=== PATIENT | female | born 1980 | race Hispanic/Latino ===

== ENCOUNTER 2023-12-09 17:22 | Emergency (ER) | payer BC, SELFPAY ==
[2023-12-09 17:22] VITALS: BP 136/94; PULSE 87; RESP 18; TEMP 36.1; O2SAT 99; BMI 37.7
[2023-12-09 17:55] LABS: Absolute Lymphocyte Count 2.83 X10^3/uL (0.83-4.51); Absolute Neutrophil Count 6.3 X10^3/uL (2.0-7.7); Eosinophil# 0.28 X10^3/uL; Eosinophils% 2.8 % (0-5); Hematocrit 45.5 % (37-47); Hemoglobin 15.1 g/dL (12.0-15.0); Lymphocyte # 2.83 X10^3/ul (0.83-4.51); Lymphocyte % 27.9 % (19-41); Mean Corp Hgb Conc 33.2 g/dL (32-36); Mean Corpuscular Hgb 29.7 pg (27.0-32.0); Mean Corpuscular Volume 89.4 fL (81-99); Mean Platelet Vol. 9.6 fl (6.2-12.0); Monocyte# 0.59 X10^3/uL; Monocyte% 5.8 % (0-10); NRBC Flagged by Analyzer 0 % (0-5); Platelet Count 450 K/mm3 (150-450); RBC Distribution Width CV 13.2 % (11.6-14.6); RBC Distribution Width SD 43.1 fl (35.1-43.9); Red Blood Count 5.09 M/mm3 (4.2-5.4); White Blood Count 10.2 K/mm3 (4.4-11.0)
[2023-12-09 18:20] LABS: ALB/GLOB Ratio 0.9 RATIO (0.9-2.4); AST(SGOT) 18 U/L (15-37); Alanine Aminotransfer ALT/SGPT 32 U/L (13-56); Albumin, Serum 3.9 g/dL (3.2-5.0); Alkaline Phosphatase 96 U/L (45-117); Anion Gap 7 (5-15); BUN 16 mg/dL (7-18); BUN/Creat Ratio 17.4 RATIO (10-20); Calcium,Total 9.6 mg/dL (8.5-10.1); Chloride 105 mmol/L (98-107); Creatinine, Serum 0.92 mg/dL (0.55-1.02); EST Glomerular Filtration Rate 70 mL/min (>60); Est Glom Filt Rate - Afr Amer 85 mL/min (>60); Estimated Creatinine Clearance 75.47 ml/min; Globulin 4.4 g/dL (2.2-4.2); Glucose 98 mg/dL (74-106); Potassium 3.8 mmol/L (3.5-5.1); Protein, Total 8.3 g/dL (6.4-8.2); Sodium Level 137 mmol/L (136-145)
[2023-12-09 18:21] LABS: Internal QC Validated? YES +Cl - CLEAR BKGD; Pregnancy, Serum, hCG Quali. NEGATIVE Negative; Record Kit Lot#, Serum Preg. 772476
[2023-12-09 19:02] LABS: Bacteria 0 SEEN /hpf (None Seen); Mucous, Urine 0 SEEN /hpf (<or=2+); Red Blood Cells-Urine 0 SEEN /hpf (0-5); Squamous Epithelial Cells - UA 0 SEEN /hpf (5-10); White Blood Cells 0 SEEN /hpf (0-5)
[2023-12-09 19:10] LABS: Color, Urine Yellow (Yellow); Glucose, Dipstick Normal (Normal); Ketone-Dipstick Negative (Negative); Leukocyte Esterase-Dipstick Negative /ul (Negative); Nitrite-Dipstick Negative (Negative); Occult Blood-Urine 10 /ul (Negative); Protein-Dipstick Negative (Negative); Specific Gravity, Urine 1.015 (1.002-1.030); Urine Bilirubin Dipstick Negative (Negative); Urine Clarity Clear (Clear); Urine Urobilinogen Normal (Normal)
--- NOTE | 2023-12-09 19:15 | EDS_ITS ---
HPI HPI - GI History of Present Illness Chief Complaint: Abd Pain Informant: patient Abdominal Pain/Flank Pain Onset: Month(s) Context: Gradual Onset Timing: Intermittent Quality: Burning Location: Epigastric Current Severity: Mild Maximum Severity: Mild Worsened by: Nothing Relieved by: Food Nausea/Vomiting/Emesis GI Symptom: Negative for Nausea or Vomiting Diarrhea/Melena/Hematochezia GI Symptom: Negative for Diarrhea, Melena or Hematochezia Associated Symptoms Associated Symptoms: Negative for Dysuria, Frequency or Hematuria Narrative Narrative: 43-year-old female history of high both thyroidism and hypertension. Prior hysterectomy and appendectomy. Says for about a month she has had epigastric abdominal pain. Worse with eating. She does not drink alcohol. Denies any significant weight loss. Describes it as a burning. No fever. No vomiting. No diarrhea or melena. Denies any trauma. She bought [id number] antiacid medication which has been helping her but today the pain seems to be worse. Does not radiate anywhere. Prior similar symptoms: Yes Recent Illness/Hospitalization: No PFSH PFSH Medical History Hypothyroidism Hypertension Home Medications ?Medication ?Instructions ?Recorded ?Last Taken ?Type pantoprazole 40 mg tablet,delayed 40 mg PO DAILY #30 tabs 12/09/23 Unknown Rx release (Protonix) Allergy/AdvReac Type Severity Reaction Status Date / Time No Known Allergies Allergy Verified 12/09/23 17:25 Surgical History History of unilateral salpingectomy H/O: hysterectomy Social History Smoking Status: Current some day smoker tobacco type: cigarettes ROS ROS ED ROS Narrative Epigastric abdominal pain. Review of Systems ROS Unobtainable: Denies due to encephalopathy Constitutional Constitutional ED: Denies chills or fever(s) ENT ENT ED: Denies ear pain Cardiovascular Cardiovascular: Denies chest pain or palpitations Respiratory/Chest Respiratory/Chest: Denies cough or dyspnea Gastrointestinal Gastrointestinal: Reports abdominal pain; Denies constipation, diarrhea, melena, nausea or vomiting Genitourinary Genitourinary ED: Denies dysuria or hematuria Musculoskeletal Musculoskeletal: Denies arthralgias or back pain Integumentary Denies abscess or Abrasions Neurologic Neurologic: Denies headache(s) Psychiatric Psychiatric: Denies anxiety Endocrine Endocrinology: Denies polydipsia Hematologic/Lymphatic Hematologic/Lymphatic: Denies easy bleeding or easy bruising Allergic/Immunologic Allergic/Immunologic ED: Denies mouth swelling, tongue swelling or urticaria EXAM Physical Exam Narrative Exam Narrative: Well-appearing 43-year-old female. Vital signs stable afebrile. H EENT exam unremarkable. Mytrex members. Neck nontender no lymphadenopathy. Lungs clear to auscultation bilaterally. Heart regular rhythm rate about 85 no murmur. Abdomen soft nondistended normal bowel sounds no peritoneal signs. Both right upper and right lower quadrant unremarkable. No distention. No hernia or mass. No pulsatile mass. Very mild epigastric discomfort with deep palpation. Moving all 4 extremities. Nontender no edema. Back nontender. She is awake and alert. Moving all 4 extremities. Answering questions following commands. Const Vital Signs: 12/09/23 17:22 12/09/23 19:22 Temperature 97 F L Temperature Source Temporal Pulse Rate 87 69 Respiratory Rate 18 18 Blood Pressure 136/94 H 111/84 H Blood Pressure Mean 108 93 Pulse Ox 99 99 Oxygen Delivery Method Room Air Room Air Positive well nourished and well developed; Negative for cachectic, contractures or unkempt General Appearance ED: well developed and NAD; Negative for unkempt, cachectic, contractures or pallor Nutritional Appearance: Negative for cachectic HEENT Reports moist mucous membranes; Denies dry mucous membranes normocephalic and atraumatic; Negative for trauma or tenderness Mouth ED: No dry mucous membranes Mouth: No dry mucous membranes Eyes PERRL and EOMs intact bilaterally General Eye ED: Negative for pale conjunctiva, scleral icterus or other Neck no lymphadenopathy, supple and no JVD General: Negative for tenderness Carotids: Negative for other Lymph Lymphatic: Negative for other Resp normal respiratory effort and clear to auscultation bilaterally Effort and Inspection: Negative for respiratory distress Auscultation: Negative for rales, rhonchi, wheezes or diminished lung sounds Cardio regular rate, regular rhythm, S1 normal heart sound, S2 normal heart sound and no murmurs Rate: Negative for bradycardia or tachycardic Rhythm: Negative for abnormal rhythm GI non-distended and no masses; Negative for non-tender GI Narrative: Very mild epigastric abdominal pain with deep palpation. No mass. No right upper nor right lower quadrant tenderness. No hernia. No distention. Inspection: Negative for abdominal distention Auscultation: normoactive bowel sounds Palpation: soft and tender; Negative for guarding, hepatomegaly, splenomegaly, hernia, mass, pulsatile mass or rebound tenderness present Back/Spine no CVA tenderness General Back: Negative for CVA tenderness Cervical Spine: Negative for cervical spine tenderness Thoracic Spine / Upper Back: Negative for thoracic spinal tenderness Lumbar Spine / Lower Back: Negative for lumbar spinal tenderness Coccyx: Negative for other Extremity full ROM General Extremety ED: Negative for edema General Extremity: Negative for edema Neuro CN's II-XII intact bilaterally and moves all extremities Sensorium / Orientation: alert, oriented to person, oriented to place and oriented to time Motor Exam: strength 5/5 throughout; Negative for general weakness or strength abnormal Psych mental status grossly normal and thought process normal Appearance: Negative for unkempt Attitude: No agitated Mood & Affect: Negative for depressed, anxious or tearful Skin no wounds General Skin Exam: Negative for jaundice or pallor Lesions: no lesions Rashes: no rashes Trauma: Negative for abrasion Nails: Negative for discolored MDM MDM MDM Narrative Medical decision making narrative: 43-year-old female epigastric Adam pain. Was taking over the counter and acid medication with some relief. Now having worse pain. No melena. No nausea or vomiting. No hematemesis. Prior appendectomy and hysterectomy. Gastritis versus pancreatitis versus gallbladder disease versus other etiologies. At this time I will think she needs any imaging. Labs to be obtained. She was given GI cocktail and Protonix. Repeat exam at 8:12 PM patient doing well. Better after GI cocktail and Protonix. Repeat abdominal exam is nontender. She and I discussed all of her test results. She will be referred to a local primary care physician for follow-up. She does not need any imaging tonight. She will be written a prescription for Protonix. clinically I think this is most likely gastritis and/or reflux. History & Record Review Discussion w/independent historian: Patient Additional record(s) reviewed:: No prior records Lab Data Attestation: I reviewed the patient's lab results. Lab results narrative: CBC white count 10 H&H of 15 and 45. Platelets 450. Electrolytes show gap 7. Normal BUN and creatinine. Liver enzymes normal. Serum test negative. Glucose 98. Lipase normal at 40. UA normal. Labs: Laboratory Results - last 24 hr 12/09/23 12/09/23 12/09/23 17:38 18:36 19:13 WBC 10.2 RBC 5.09 Hgb 15.1 H Hct 45.5 MCV 89.4 MCH 29.7 MCHC 33.2 RDW Std Deviation 43.1 RDW Coeff of Mina 13.2 Plt Count 450 MPV 9.6 Immature Gran % (Auto) 0.500 Neut % (Auto) 62.0 Lymph % (Auto) 27.9 Gr[place]gs % (Auto) 5.8 Eos % (Auto) 2.8 Baso % (Auto) 1.0 Absolute Neuts (auto) 6.3 Absolute Lymphs (auto) 2.83 Nucleated RBC % 0 Sodium 137 Potassium 3.8 Chloride 105 Carbon Dioxide 25.0 Anion Gap 7 BUN 16 Creatinine 0.92 Estim Creat Clear Calc 75.47 Est GFR (MDRD) Af Amer 85 Est GFR (MDRD) Non-Af 70 BUN/Creatinine Ratio 17.4 Glucose 98 Calcium 9.6 Total Bilirubin 0.40 AST 18 ALT 32 Alkaline Phosphatase 96 Total Protein 8.3 H Albumin 3.9 Globulin 4.4 H Albumin/Globulin Ratio 0.9 Lipase 40 Serum , Qual NEGATIVE Urine Color Yellow Urine Clarity Clear Urine pH 6.0 Ur Specific [place] 1.015 Urine Protein Negative Urine Glucose (UA) Normal Urine Ketones Negative Urine Occult Blood 10 H Urine Nitrite Negative Urine Bilirubin Negative Urine Urobilinogen Normal Ur Leukocyte Esterase Negative Urine RBC 0 SEEN Urine WBC 0 SEEN Ur Squamous Epith Cells 0 SEEN Urine Bacteria 0 SEEN Urine Mucus 0 SEEN Discharge Plan Triage Chief Complaint: Abd Pain ED Provider: Fabien Rodrigues Dx/Rx/DC Orders Clinical Impression: Gastritis, Acid reflux disease Instructions: ED GERD (Adult), ED Gastritis (Adult) Prescriptions: New pantoprazole [Protonix] 40 mg tablet,delayed release (DR/EC) 40 mg PO DAILY Qty: 30 1RF Primary Care Provider: Care Physician,No Primary Referrals: Ras Quinones MD [Med Staff - Mail Handler Assistant] - 1-2 Weeks Care Physician,No Primary [Primary Care Provider] - Activity Restrictions/Additional Instructions: Your labs today look good. This is most likely secondary to gastroesophageal reflux and/or gastritis. Take the medication Protonix once daily. You can also use Tums [id number]. Stevens diet and increase slowly. Avoid real spicy or greasy foods. Follow-up with a local primary care physician. Print Language: Yoruba Disposition Disposition: Home, Self Care
[2023-12-09] MEDS: Pantoprazole Sodium 40 MG Tablet PO (19:19)
[2023-12-09] MEDS: Lidocaine 2% Viscous15 ML UDC 15 ML PO (19:19)
[2023-12-09] MEDS: Mag Hydrox/Al Hydrox/Simeth 30 ML UDC PO (19:19)
[2023-12-09 19:22] VITALS: BP 111/84; PULSE 69; RESP 18; O2SAT 99
[2023-12-09 20:00] VITALS: BP 116/85; PULSE 67; RESP 18; TEMP 36.6; O2SAT 99
[2023-12-09 20:01] LABS: Lipase 40 U/L (13-75)
== END 2023-12-09 20:23 | disposition home or self-care (01) ==
PROVIDERS: Emergency Provider Emergency Medicine; Visit Provider Emergency Medicine
DX: K29.70 Gastritis, unspecified, without bleeding (principal); K21.9 Gastro-esophageal reflux disease without esophagitis; I10 Essential (primary) hypertension; F17.210 Nicotine dependence, cigarettes, uncomplicated; Z90.710 Acquired absence of both cervix and uterus; E03.9 Hypothyroidism, unspecified
CPT/HCPCS: 80053; 81001; 83690; 84703; 85025; 99284; A4216

== ENCOUNTER → 2024-04-09 | Outpatient (CLI) | payer BC, SELFPAY ==
[2024-04-09 17:12] LABS: Anion Gap 5 (5-15); BUN 19 mg/dL (7-18); BUN/Creat Ratio 19.9 RATIO (10-20); Calcium,Total 9.6 mg/dL (8.5-10.1); Chloride 105 mmol/L (98-107); Creatinine, Serum 0.95 mg/dL (0.55-1.02); EST Glomerular Filtration Rate 67 mL/min (>60); Est Glom Filt Rate - Afr Amer 82 mL/min (>60); Glucose 89 mg/dL (74-106); Potassium 4.1 mmol/L (3.5-5.1); Sodium Level 140 mmol/L (136-145)
== END | disposition home or self-care (01) ==
LOC: BIMLAB 14:18
PROVIDERS: PCP Internal Medicine; Referring Provider Internal Medicine; Visit Provider Internal Medicine
DX: I10 Essential (primary) hypertension (principal); E03.9 Hypothyroidism, unspecified
CPT/HCPCS: 36415; 80048; 84443

== ENCOUNTER → 2024-09-08 | Outpatient (CLI) | payer BC, SELFPAY ==
[2024-09-08 16:51] LABS: Cholesterol 221 mg/dL (<=200); High Density Lipoprotein 50 mg/dL; Low Density Lipoprotein Calc. 121 mg/dL; Triglycerides 249 mg/dL; Very Low Density Lipoprotein 50 mg/dL (5-40); cholesterol:hdl ratio screen 4.42
[2024-09-08 17:59] LABS: ALB/GLOB Ratio 1.2 RATIO (0.9-2.4); AST(SGOT) 24 U/L (<=31); Alanine Aminotransfer ALT/SGPT 25 U/L (<=34); Albumin, Serum 4.4 g/dL (3.5-5.0); Alkaline Phosphatase 103 U/L (35-104); Anion Gap 14 (5-15); BUN 18 mg/dL (4-19); BUN/Creat Ratio 20.3 RATIO (10-20); Calcium,Total 9.9 mg/dL (7.6-11.0); Carbon Dioxide 23.8 mmol/L (21.0-32.0); Chloride 104 mmol/L (98-108); Creatinine, Serum 0.87 mg/dL (0.70-1.20); EST Glomerular Filtration Rate 84 (>60); Globulin 3.6 g/dL (2.2-4.2); Glucose 113 mg/dL (70-99); Potassium 4.2 mmol/L (3.3-5.1); Sodium Level 141 mmol/L (133-145)
== END | disposition home or self-care (01) ==
LOC: BIMLAB 13:39
PROVIDERS: PCP Internal Medicine; Referring Provider Internal Medicine; Visit Provider Internal Medicine
DX: Z00.00 Encounter for general adult medical examination without abnormal findings (principal)
CPT/HCPCS: 36415; 80053; 80061

== ENCOUNTER → 2024-09-15 | Outpatient (CLI) | payer BC, SELFPAY ==
--- NOTE | 2024-09-15 13:30 | BI_ITS ---
EXAM: SCRN MAMM (CAD)W/JORDAN BILAT 09/15/2024 CLINICAL HISTORY: F, Age 44 y/o , BREAST CANCER SCREENING TECHNIQUE: Bilateral screening digital breast tomosynthesis with 2D and 3D images. Computer aided detection. COMPARISON: Baseline examination, no priors. FINDINGS: TISSUE DENSITY: The breast tissue is heterogenously dense, which may obscure small masses. The mammogram demonstrates that the patient has dense breasts. Supplemental screening with whole breast ultrasound or MRI may be considered for further evaluation. Bilateral Breast Mammographic Findings: There are multiple bilateral circumscribed masses, which is typically a benign pattern. No significant masses, calcifications or other abnormalities are identified. BI/SCRN MAMM (CAD)W/JORDAN BILAT IMPRESSION: Right Breast: BIRADS 2 BENIGN FINDING. Left Breast: BIRADS 2 BENIGN FINDING. OVERALL FINAL ASSESSMENT: BIRADS 2 BENIGN FINDING. RECOMMENDATION: Routine annual follow-up in 1 Year A letter with findings and recommendations will be mailed to the patient. Reading Location: [id number]
== END | disposition home or self-care (01) ==
PROVIDERS: PCP Internal Medicine; Referring Provider Internal Medicine; Visit Provider Internal Medicine
DX: Z12.31 Encounter for screening mammogram for malignant neoplasm of breast (principal)
CPT/HCPCS: 77063; 77067

== ENCOUNTER 2024-11-17 08:46 | Day surgery (SDC) | payer BC, SELFPAY ==
--- NOTE | 2024-11-12 13:42 | PAT.ANESEVAL ---
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 When Was Last Pacemaker Check QUESTION #4 FULL TEXT: You/Your Family Experience fever (hyperthermia) with Anesthesia Last Oral Intake Last Oral intake: Last Oral Intake NPO since Meds taken in AM with sips of water? 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 - java programmer analyst: PONV - java programmer analyst Female Yes 11/12/24 13:09 HX of Motion Sickness No 11/12/24 13:09 HX of N/V After Surgery No 11/12/24 13:09 Non-Smoker No 11/12/24 13:09 Duration of Surgery greater No 11/12/24 13:09 than 60 minutes Number of Risk Factors 1 11/12/24 13:09 PONV Score Low Risk 11/12/24 13:09 Height & Weight Height & Weight: Anesthesia: Height & Weight Height 4 ft 11 in 09/08/24 13:10 Respiratory Assessment Respiratory Assessment - java programmer analyst: Respiratory Tract Infection Hx - java programmer analyst Hx Respiratory Tract Infection No 11/12/24 13:09 STOP Sleep Apnea STOP Sleep Apnea - java programmer analyst: STOP Sleep Apnea - java programmer analyst Hx Hypertension Yes 11/12/24 13:09 Hx Sleep Apnea No 11/12/24 13:09 CPAP BIPAP Do you snore loudly (louder No 11/12/24 13:09 than talking or can be heard Do you often feel tired/ No 11/12/24 13:09 fatigued/ sleepy during daytime? Has anyone observed you stop No 11/12/24 13:09 breathing during sleep? STOP Results Negative 11/12/24 13:09 QUESTION #5 FULL TEXT : Do you snore loudly (louder than talking or can be heard through closed doors)? 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 Specify any problems Hx of Preganancy in last 3 No 11/12/24 13:09 Months Nurse Filling Out Transfusion MGRIFFITH 11/12/24 13:09 & Questions: Date: 11/12/24 11/12/24 13:09 Time: 13:12 11/12/24 13:09 Patient unable to answer at this time (ie. confused, unrespo /Reproduction History /Reproductive History - java programmer analyst: /Reproductive Hx- java programmer analyst Hx Now No 11/12/24 13:09 Gestational Age (in weeks): EDC: Hx Hx Para Hx Section SAB No 11/12/24 13:09 [facility] Medical History (Updated 11/12/24 @ 13:20 by Lynsey Aguilar) Alcohol use High cholesterol Smoker Leg cramps Cardiology follow-up encounter GERD (gastroesophageal reflux disease) Preventative health care Colon cancer screening Establishing care with new doctor, encounter for Abdominal pain Hypothyroidism Hypertension Home Medications ?Medication ?Instructions ?Recorded ?Last Taken ?Type olmesartan 20 1 tab PO QDAY #90 tabs 09/10/24 Unknown Rx mg-hydrochlorothiazide 12.5 mg tablet levothyroxine 75 mcg tablet 75 mcg PO QDAY #90 tabs 10/11/24 Unknown Rx bromelains 500 mg tablet 500 mg PO QODAY 11/12/24 Unknown History Allergy/AdvReac Type Severity Reaction Status Date / Time No Known Allergies Allergy Verified 11/12/24 13:06 Family History Father Diabetes Grandfather Colon cancer Surgical History (Updated 11/12/24 @ 13:09 by Lynsey Aguilar) History of colonoscopy History of unilateral salpingectomy H/O: hysterectomy Social History household members: spouse and children current occupational status: employed Smoking Status: Current every day smoker tobacco type: cigarettes alcohol intake: current alcohol intake frequency: holidays/special occasions only substance use type: does not use what type of physical activity do you participate in: walking seatbelt use: always do you feel safe at home: Yes Audit: Pertinent Findings Pertinent Findings Additional pertinent findings: Diagnosed with hypertension in [place]. Patient currently being treated with hydrochlorothiazide. No other documentation available. Recommendation Anesthesia Recommendation Anesthesia recommendation: OPTIMIZED for anesthesia
[2024-11-17] VITALS (7 sets, daily range): BP systolic 95–117; BP diastolic 61–76; PULSE 59–83; RESP 16–18; TEMP 36.1–36.6; O2SAT 96–100; BMI 35.2
--- NOTE | 2024-11-17 09:14 | PRE.ANES_ITS ---
ASA Classification* ASA Classification ASA Classification: 2 Assessment & Plan Anesthesia* Anesthesia Assessment Anesthesia Assessment: Discussed sedation and/or anesthesia options, risks, benefits, and alternatives with patient/parents/legal guardian/POA. Questions invited. The patient/parents/legal guardian/POA seems to understand and agrees to proceed with anesthesia plan. Reviewed the physical assessment, medical history, allergy history and patient home medications list prior to surgery/procedure/anesthetic and documented any changes. Performed airway and anesthesia risk assessments. Anesthesia Type Anesthesia Type: MAC Anesthesia Focused Assessment* Airway Assessment Mouth opens: >3 cm Mallampati Score: II Labs Anesthesia Preop lab: CBC WBC 10.2 K/mm3 (4.4-11.0) 12/09/23 17:38 12/09/23 RBC 5.09 M/mm3 (4.2-5.4) 12/09/23 17:38 12/09/23 Hgb 15.1 g/dL (12.0-15.0) H 12/09/23 17:38 4 Hct 45.5 % (37-47) 12/09/23 17:38 12/09/23 Plt Count 450 K/mm3 (150-450) 12/09/23 17:38 12/09/23 CHEMISTRY Potassium 4.2 mmol/L (3.3-5.1) 09/08/24 13:40 09/08/24 Sodium 141 mmol/L (133-145) 09/08/24 13:40 09/08/24 BUN 18 mg/dL (4-19) 09/08/24 13:40 09/08/24 Creatinine 0.87 mg/dL (0.70-1.20) 09/08/24 13:40 09/08/24 Glucose 113 mg/dL (70-99) H 09/08/24 13:40 09/08/24 TSH 2.700 uIU/mL (0.358-3.740) 04/09/24 14:19 07/02 COAG Pre-Assessment Diagnosis/Proposed Procedure Planned Operative Procedure(s): COLONOSCOPY Anesthesia History 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 When Was Last Pacemaker Check QUESTION #4 FULL TEXT: You/Your Family Experience fever (hyperthermia) with Anesthesia Last Oral Intake Last Oral intake: Last Oral Intake NPO since Meds taken in AM with sips of water? 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 manufacturing technician Female Yes 11/12/24 13:09 HX of Motion Sickness No 11/12/24 13:09 HX of N/V After Surgery No 11/12/24 13:09 Non-Smoker No 11/12/24 13:09 Duration of Surgery greater No 11/12/24 13:09 than 60 minutes Number of Risk Factors 1 11/12/24 13:09 PONV Score Low Risk 11/12/24 13:09 Height & Weight Height & Weight: Anesthesia: Height & Weight Height 4 ft 11 in 09/08/24 13:10 Respiratory Assessment Respiratory Assessment - lead manufacturing technician: Respiratory Tract Infection Hx - lead manufacturing technician Hx Respiratory Tract Infection No 11/12/24 13:09 STOP Sleep Apnea STOP Sleep Apnea - lead manufacturing technician: STOP Sleep Apnea - lead manufacturing technician Hx Hypertension Yes 11/12/24 13:09 Hx Sleep Apnea No 11/12/24 13:09 CPAP BIPAP Do you snore loudly (louder No 11/12/24 13:09 than talking or can be heard Do you often feel tired/ No 11/12/24 13:09 fatigued/ sleepy during daytime? Has anyone observed you stop No 11/12/24 13:09 breathing during sleep? STOP Results Negative 11/12/24 13:09 QUESTION #5 FULL TEXT : Do you snore loudly (louder than talking or can be heard through closed doors)? 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 Specify any problems Hx of Preganancy in last 3 No 11/12/24 13:09 Months Nurse Filling Out Transfusion MGRIFFITH 11/12/24 13:09 & Questions: Date: 11/12/24 11/12/24 13:09 Time: 13:12 11/12/24 13:09 Patient unable to answer at this time (ie. confused, unrespo /Reproduction History /Reproductive History - lead manufacturing technician: /Reproductive Hx- lead manufacturing technician Hx Now No 11/12/24 13:09 Gestational Age (in weeks): EDC: Hx Hx Para Hx Section SAB No 11/12/24 13:09 Active Medications Active Medications: Current Medications Generic Name Dose Route Start Last Admin Trade Name Freq PRN Reason Stop Dose Admin Lactated Ringer's 1,000 mls @ 15 mls/hr 11/17/24 09:00 IV .Q48H DREW PFSH Medical History Alcohol use High cholesterol Smoker Leg cramps Cardiology follow-up encounter GERD (gastroesophageal reflux disease) Preventative health care Colon cancer screening Establishing care with new doctor, encounter for Abdominal pain Hypothyroidism Hypertension Home Medications ?Medication ?Instructions ?Recorded ?Last Taken ?Type olmesartan 20 1 tab PO QDAY #90 tabs 09/10 Unknown Rx mg-hydrochlorothiazide 12.5 mg tablet levothyroxine 75 mcg tablet 75 mcg PO QDAY #90 tabs Unknown Rx bromelains 500 mg tablet 500 mg PO QODAY 11/12/24 Unk nown History Allergy/AdvReac Type Severity Reaction Status Date / Time No Known Allergies Allergy Verified 11/17/24 09:14 Family History Father Diabetes Grandfather Colon cancer Surgical History History of colonoscopy History of unilateral salpingectomy H/O: hysterectomy Social History household members: spouse and children current occupational status: employed Smoking Status: Current some day smoker tobacco type: cigarettes alcohol intake: current alcohol intake frequency: holidays/special occasions only substance use type: does not use what type of physical activity do you participate in: walking seatbelt use: always do you feel safe at home: Yes Review of Systems (Anesthesia) ROS Narrative System reviewed and no additional complaints, except as documented.
[2024-11-17] MEDS: Lactated Ringers 1,000 ML 15 ML IV (09:25)
--- NOTE | 2024-11-17 09:47 | H&P.OPEN ---
[facility] - General General Date of Service: 11/17/24 HPI Narrative SARANYA MCMULLEN, is a 44 F who presents for screening colonoscopy. Patient's had a colonoscopy and EGD about 20 years ago in [place]. Patient states her maternal grandfather had colon cancer in his 80s but no immediate relatives. Patient has bowel movements every other day denies any blood. Patient denies any chronic abdominal pain/nausea/vomiting. Patient does have some left upper quadrant abdominal pain was previously on pantoprazole due to reflux but has run out. Left upper quadrant pain did improve/resolve with the pantoprazole before she ran out. [facility] Medical History Alcohol use High cholesterol Smoker Leg cramps Cardiology follow-up encounter GERD (gastroesophageal reflux disease) Preventative health care Colon cancer screening Establishing care with new doctor, encounter for Abdominal pain Hypothyroidism Hypertension Home Medications ?Medication ?Instructions ?Recorded ?Last Taken ?Type olmesartan 20 1 tab PO QDAY #90 tabs 09/10/24 11/16/24 Rx mg-hydrochlorothiazide 12.5 mg tablet levothyroxine 75 mcg tablet 75 mcg PO QDAY #90 tabs 10/11/24 11/17/24 Rx bromelains 500 mg tablet 500 mg PO QODAY 11/12/24 11/15/24 History Allergy/AdvReac Type Severity Reaction Status Date / Time No Known Allergies Allergy Verified 11/17/24 09:14 Family History Father Diabetes Grandfather Colon cancer Surgical History History of colonoscopy History of unilateral salpingectomy H/O: hysterectomy Social History household members: spouse and children current occupational status: employed Smoking Status: Current some day smoker tobacco type: cigarettes alcohol intake: current alcohol intake frequency: holidays/special occasions only substance use type: does not use what type of physical activity do you participate in: walking seatbelt use: always do you feel safe at home: Yes Past Medical/Surgical History Planned Operation Planned Operative Procedure(s): COLONOSCOPY Previous Hospitalizations/Surgeries HX Hospitalizations: No Any Problems With Anesthesia: No You/Your Family Experience Fever (Hyperthermia) With Anes: No Cholinesterase deficiency: No Cardiovascular Hx Hypertension: Yes Respiratory Hx Sleep Apnea: No Hx Respiratory Tract Infection/Cold (presently): No Do You Snore Loudly (louder than talking or can be heard): No Do You Often Feel Tired/ Fatigued/ Sleepy Dring Daytime?: No Has Anyone Observed You Stop Breathing During Sleep?: No Result (for STOP score): Negative Smoking Status: Current some day smoker Neurological Does patient have nerve stimulator: No Reproduction : No Miscellaneous Recent Exposure to Contagious Disease: No Allergies No Known Allergies Allergy (Verified 11/17/24 09:14) Discharge Is Pt Admitted From a Half-Way, or a Custodial: No Who Could Help: FAMILY After D/C, Where Do you Plan to Go: Return Home Vital Signs Vital Signs Vital Signs: 11/17/24 09:15 11/17/24 09:15 Temperature 97.0 F L Temperature Source Temporal Pulse Rate 59 L Respiratory Rate 18 Respiratory Pattern Normal Blood Pressure 104/61 Blood Pressure Mean 75 Blood Pressure Source Monitor Blood Pressure Position Semi-Fowlers Blood Pressure Location Left Arm Pulse Ox 100 Oxygen Delivery Method Room Air Weight Weight: 174 lb 2.643 oz Body Mass Index (BMI) 35.2 Physical Exam Const alert, oriented x3 and no apparent distress HEENT normocephalic and head/scalp atraumatic Resp normal respiratory effort Cardio regular rate GI soft to palpation and non-tender; Negative for non-distended Palpation: Negative for guarding Extremity no clubbing, cyanosis or edema Skin no rashes or lesions noted Neuro CN's II-XII intact bilaterally Psych mental status grossly normal Assessment & Plan Assessment/Plan (1) Colon cancer screening: (2) GERD (gastroesophageal reflux disease): PLAN: Plan Will refill patient's pantoprazole. Surgery Risks - Colonoscopy I discussed with the patient the risks of the procedure: Yes Risks Include but are not Limited To: Risks include but are not limited to: Bleeding, perforation requiring further surgery, inability to complete colonoscopy requiring barium enema.
--- NOTE | 2024-11-17 10:54 | OP.CCLET_ITS ---
11/17/2024 Huang Jay MD [address] [place] [address] [place] [address] Re : Colonoscopy procedure for Kaylee Charles Dear Dr. Jay This procedure was performed on Sunday, November 17, 2024. My impressions and recommendations are as follows: Impressions : - The entire examined colon is normal on direct and retroflexion views. - No specimens collected. Recommendations : - Discharge patient to home. - Resume previous diet. - Continue present medications. - Repeat colonoscopy in 10 years for screening purposes. My findings are described in the full procedure note, which is enclosed. If I can be of further assistance, please feel free to contact me at Doctor phone number(s): , Work: . Sincerely, MD Coretta Daniel MD 11/17/2024 10:53:39 AM This report has been signed electronically.
--- NOTE | 2024-11-17 10:54 | OP.COLON_ITS ---
Patient Name: Kaylee Charles Procedure Date: 11/17/2024 10:23 AM Date of : 1980 Age: 44 Procedure: Colonoscopy Indications: Screening for colorectal malignant neoplasm Providers: Coretta King MD Referring MD: Coretta King MD Medicines: Monitored Anesthesia Care Patient Profile: This is a 44 year old female. Last Colonoscopy: more than 10 years ago. Complications: No immediate complications. Procedure: Pre-Anesthesia Assessment: - Prior to the procedure, a History and Physical was performed, and patient medications and allergies were reviewed. The patient's tolerance of previous anesthesia was also reviewed. The risks and benefits of the procedure and the sedation options and risks were discussed with the patient. All questions were answered, and informed consent was obtained. Prior Anticoagulants: The patient has taken no anticoagulant or antiplatelet agents. ASA Grade Assessment: Per anesthesia. After reviewing the risks and benefits, the patient was deemed in satisfactory condition to undergo the procedure. After I obtained informed consent, the scope was passed under direct vision. Throughout the procedure, the patient's blood pressure, pulse, and oxygen saturations were monitored continuously. The Colonoscope was introduced through the anus and advanced to the cecum, identified by the ileocecal valve. The colonoscopy was performed without difficulty. The patient tolerated the procedure well. The quality of the bowel preparation was good. Scope In: 10:35:12 AM Scope Withdrawal Time 0 hours 6 minutes 6 seconds Scope Out: 10:49:18 AM Total Procedure Duration Time 0 hours 14 minutes 6 seconds Findings: The perianal and digital rectal examinations were normal. The entire examined colon appeared normal on direct and retroflexion views. Impression: - The entire examined colon is normal on direct and retroflexion views. - No specimens collected. Recommendation: - Discharge patient to home. - Resume previous diet. - Continue present medications. - Repeat colonoscopy in 10 years for screening purposes. Procedure Code(s): --- Professional --- G0121, PT, Colorectal cancer screening; colonoscopy on individual not meeting criteria for high risk Diagnosis Code(s): --- Professional --- Z12.11, Encounter for screening for malignant neoplasm of colon CPT copyright 2021 [employer]. All rights reserved. The codes documented in this report are preliminary and upon manager hotel review may be revised to meet current compliance requirements. MD Coretta Daniel MD 11/17/2024 10:53:39 AM This report has been signed electronically. Number of Addenda: 0 Note Initiated On: 11/17/2024 10:23 AM
--- NOTE | 2024-11-17 10:55 | PCM.POST.ANE ---
Anesthesia: Postop Eval I Current Vital Signs Temperature: 97.5 F Pulse Rate: 80 Blood Pressure: 95/61 Respiratory Rate: 16 Pulse Ox: 96 Oxygen Delivery Method: Room Air Assessment Airway patent: Yes Spontaneous unlabored respirations: Yes Mental status: Asleep nausea: No Vomiting: No Anesthesia Complication: No Fluid Hydration Crystalloid volume administer (ml): 500 Total IV fluid infused: 500 Progress Note Anesthesia document: Postop Eval 1 completed: Yes
--- NOTE | 2024-11-17 11:55 | POSTOPAN2_ITS ---
Anesthesia Postop Eval I Sum Postop Eval Completion status Anesthesia document: Postop Eval 1 completed: Yes Anesthesia Postop Eval I Summary Anesthesia Postop Eval I Summary: Anesthesia Postop Eval I: Assessment Summary Airway patent Yes 11/17/24 10:56 [email or web address] Spontaneous unlabored Yes 11/17/24 10:56 [email or web address] respirations Mental status Asleep 11/17/24 10:56 [email or web address] nausea No 11/17/24 10:56 [email or web address] Vomiting No 11/17/24 10:56 DRAFTER LANDSCAPEDAYA Anesthesia Postop Eval I: Fluid Summary Crystalloid volume administer 500 11/17/24 10:56 [email or web address] (ml) Colloids volume administered ( ml) Blood Product volume administered (ml) Total IV fluid infused 500 11/17/24 10:56 MEENU Anesthesia Postop Eval I: Summary Notes Anesthesia Complication No 11/17/24 10:56 MEENU Anesthesia Complication Comment: Post-operative progress note Anesthesia: Postop Eval II Evaluation Mental status: Awake Pain Level: 0 nausea: No Vomiting: No
--- NOTE | 2024-11-17 11:55 | PCM.POSTANE2 ---
Anesthesia Postop Eval I Sum Postop Eval Completion status Anesthesia document: Postop Eval 1 completed: Yes Anesthesia Postop Eval I Summary Anesthesia Postop Eval I Summary: Anesthesia Postop Eval I: Assessment Summary Airway patent Yes 11/17/24 10:56 [email or web address] Spontaneous unlabored Yes 11/17/24 10:56 [email or web address] respirations Mental status Asleep 11/17/24 10:56 [email or web address] nausea No 11/17/24 10:56 [email or web address].RAFA Vomiting No 11/17/24 10:56 [employer] ASSOCIATEDAYA Anesthesia Postop Eval I: Fluid Summary Crystalloid volume administer 500 11/17/24 10:56 [email or web address] (ml) Colloids volume administered ( ml) Blood Product volume administered (ml) Total IV fluid infused 500 11/17/24 10:56 MEENU Anesthesia Postop Eval I: Summary Notes Anesthesia Complication No 11/17/24 10:56 MEENU Anesthesia Complication Comment: Post-operative progress note Anesthesia: Postop Eval II Evaluation Mental status: Awake Pain Level: 0 nausea: No Vomiting: No
== END 2024-11-17 11:54 | disposition home or self-care (01) ==
LOC: EN 08:48 → AC 08:49
PROVIDERS: PCP Internal Medicine; Referring Provider Internal Medicine; Visit Provider Surgery
PROC: 0DJD8ZZ Inspection of Lower Intestinal Tract, Via Natural or Artificial Opening Endoscopic (ICD-10-PCS; CPT 45378; principal; 2024-11-17 09:55)
DX: Z12.11 Encounter for screening for malignant neoplasm of colon (principal); K21.9 Gastro-esophageal reflux disease without esophagitis; E78.00 Pure hypercholesterolemia, unspecified; I10 Essential (primary) hypertension; F17.210 Nicotine dependence, cigarettes, uncomplicated
CPT/HCPCS: 45378; J2405

== ENCOUNTER 2024-12-27 07:25 | Day surgery (SDC) | payer BC, SELFPAY ==
[2024-12-27] VITALS (10 sets, daily range): BP systolic 67–127; BP diastolic 35–72; PULSE 52–89; RESP 16–18; TEMP 36.1–36.4; O2SAT 91–98; BMI 37.3
--- OUTSIDE RECORDS SUMMARY | 2024-12-27 07:29 | XMS RPT_ITS | CCD ---
Author Organization [facility] Care Team Providers Care Field Auditor Name Role Phone Misty ARANDA, Dr. Encinas Primary Care Provider Misty ARANDA, Dr. Encinas Attending Provider [phone] Misty ARANDA, Dr. Encinas Referring Provider Fernando ARANDA, Dr. Hitchcock Attending Provider Fernando ARANDA, Dr. Hitchcock Other Provider Oleghe, Efewongbe Attending Unavailable Oleghe, Efewongbe Referring Unavailable Oleghe, Efewongbe Primary Care Unavailable Oleghe, Efewongbe Primary Care Unavailable Robotham, Coretta Attending Unavailable Oleghe, Efewongbe Attending Unavailable Oleghe, Efewongbe Referring Unavailable Oleghe, Efewongbe Primary Care Unavailable Oleghe, Efewongbe Referring Unavailable Oleghe, Efewongbe Primary Care Unavailable Robotham, Coretta Consulting Unavailable Robotham, Coretta Attending Unavailable Care Physician, No Primary Referring Unava ilable Oleghe, Efewongbe Attending Unavailable Care Physician, No Primary Primary Care Unava ilable Oleghe, Efewongbe Referring Unavailable Oleghe, Efewongbe Primary Care Unavailable Robotham, Coretta Attending Unavailable Oleghe, Efewongbe Referring Unavailable Oleghe, Efewongbe Primary Care Unavailable Robotham, Coretta Attending Unavailable Oleghe, Efewongbe Attending Unavailable Oleghe, Efewongbe Referring Unavailable Oleghe, Efewongbe Primary Care Unavailable Oleghe, Efewongbe Attending Unavailable Oleghe, Efewongbe Referring Unavailable Oleghe, Efewongbe Primary Care Unavailable Medications Current Medications Medication Drug Class(es) Dates Sig (Normalized) Sig (Original) levothyroxine sodium 0.075 mg oral tablet (10 sources) l-Thyroxine Start: 04-12-2024 End: 10-11-2024 take 1 tablet by mouth once daily Levothyroxine 75 mcg tablet Active 75 ug PO daily 90 October 11, 2024 7:16am Start: 04-09-2024 End: 04-12-2024 take 1 capsule by mouth once daily Levothyroxine 75 mcg capsule Discontinued 75 ug PO daily April 09, 2024 12:00am April 12, 2024 7:02pm Completed/Discontinued Medications Medication Drug Class(es) Dates Sig (Normalized) Sig (Original) bromelains 500 mg oral tablet (2 sources) Start: 11-12-2024 End: 12-14-2024 take 1 tablet by mouth every other day after mealtime Bromelains 500 mg tablet Discontinued 500 mg PO EVERY OTHER DAY November 12, 2024 12:00am December 14, 2024 2:00pm administer after a meal DI-ARAHKOR 60 mg (4 sources) Start: 04-09-2024 End: 09-08-2024 take 60 mg by mouth once daily DI-ARAHKOR 60 mg Discontinued PO DAILY April 09, 2024 12:00am September 08, 2024 1:07pm 60 MG/12.5 MG ;BP MED FROM [place] hydroCHLOROthiazide 12.5 mg / olmesartan medoxomil 20 mg oral tablet (16 sources) Thiazide Diuretic, Angiotensin 2 Receptor Ambrosio Start: 04-09-2024 End: 09-10-2024 Olmesartan-Hydroc hlorothiazide 20-12.5 mg tablet Discontinued 1 {tbl} PO daily September 09, 2024 9:32am September 10, 2024 4:35pm omeprazole 40 mg delayed release oral capsule (4 sources) Proton Pump Inhibitor Start: 09-08-2024 End: 11-12-2024 take 1 capsule by mouth once daily 30 minutes before breakfast Omeprazole 40 mg capsule,delayed release(DR/EC) Discontinued 40 mg PO daily September 08, 2024 12:00am November 12, 2024 1:06pm Take 30 minutes before breakfast pantoprazole 40 mg delayed release oral tablet (6 sources) Proton Pump Inhibitor Start: 11-17-2024 End: 07-08-2025 take 1 tablet by mouth once daily Pantoprazole 40 mg tablet,delayed release (DR/EC) Discontinued 40 mg PO DAILY 30 November 17, 2024 12:00am December 14, 2024 2:00pm Start: 12-09-2023 End: 04-09-2024 take 1 tablet by mouth once daily Pantoprazole (Protonix) 40 mg tablet,delayed release (DR/EC) Discontinued 40 mg PO DAILY 08 07December 09, 2023 12:00am April 09, 2024 1:38pm Problems Active Problems Problem Classification Problem Date Documented Date Episodic/Chronic Esophageal disorders (12 sources) Gastroesophageal reflux disease; Translations: [Gastro-esophageal reflux disease without esophagitis] Onset: 12-01-2024 09-08-2024 Chronic Essential hypertension (9 sources) Hypertensive disorder; Translations: [Essential (primary) hypertension] Onset: 05-03-2024 04-09-2024 Chronic Comment on above: PER PT, CONTROLLED O N MEDS Gastritis and duodenitis (4 sources) Gastritis; Translations: [Gastritis, unspecified, without bleeding] 12-17-2023 Episodic Other screening for suspected conditions (not mental disorders or infectious disease) (13 sources) Patient encounter status; Translations: [Encounter for screening for malignant neoplasm of colon] Onset: 09-21-2024 09-08-2024 Episodic Thyroid disorders (9 sources) Hypothyroidism; Translations: [Hypothyroidism, unspecified] Onset: 04-09-2024 04-09-2024 Chronic Unclassified (5 sources) Encounter for screening for malignant neoplasm of colon; Translations: [Z12.11 - Encounter for screening for malignant neoplasm of colon] Unclassified (2 sources) Z12.11 - Encounter for screening for malignant neoplasm of colon,K21.9 - Gastro-esophageal reflux disease without esophagitis Past or Other Problems Problem Classification Problem Date Documented Da te Episodic/Chronic Abdominal pain (5 sources) Abdominal pain; Translations: [Unspecified abdominal pain] Onset: 04-09-2024 04-09-2024 Episodic Administrative/social admission (5 sources) First encounter by subject; Translations: [Persons encountering health services in other specified circumstances] Onset: 04-09-2024 04-09-2024 Episodic Results Test Name Value Interpretation Reference Range Facility Surgery Visit Reporton 12-14 Surgery Visit Report [facility] [address] [place] [address] OFFICE VISIT Date of Service: 12/14/24 MR#: [id number] Acct: [id number] Name: KAYLEE GARRETT Rep #: [id number] : 1980 Provider: Dr. Coretta sanchez MD Age/Sex: 44/F Location: [facility] Status: Signed Intake Vital Signs 09/08/24 13:10 11/17/24 09:15 12/14/24 13:59 Height 4 ft 11 in 4 ft 11 in 4 ft 11 in Weight: 177 lb BMI 35.7 BP 111/68 Blood Pressure Location Rt brachial Position Sitting Respiration 17 Pulse 60 Pulse Source Monitor Temp 97.5 F L Temp Source Temporal Pulse Oximetry (%) 94 Oxygen Delivery Method room air Intake Visit Reasons: DISCUSS EGD Chief Complaint: EGD Is patient in pain?: No Allergies No Known Allergies Allergy (Verified 12/14/24 14:00) Medications ???Medication ???Instructions ???Recorded ???Confirmed ???Type olmesartan 20 1 tab PO QDAY #90 tabs 09/10/24 Rx mg-hydrochlorothiazide 12.5 mg tablet levothyroxine 75 mcg tablet 75 mcg PO QDAY #90 tabs 10/11/24 0 12/14/24 Rx PFSH Medical History Alcohol use High cholesterol Smoker Leg cramps Cardiology follow-up encounter GERD (gastroesophageal reflux disease) Preventative health care Colon cancer screening Establishing care with new doctor, encounter for Abdominal pain Hypothyroidism Hypertension Surgical History (Updated 11/17/24 @ 11:05 by Princess You) History of appendectomy History of colonoscopy History of unilateral salpingectomy H/O: hysterectomy Family History Father Diabetes Grandfather Colon cancer Social History household members: spouse and children current occupational status: employed Smoking Status: Current some day smoker tobacco type: cigarettes alcohol intake: current alcohol intake frequency: holidays/special occasions only substance use type: does not use what type of physical activity do you participate in: walking seatbelt use: always do you feel safe at home: Yes HPI HPI HPI: 44-year-old female presents to discuss EGD. Patient does states she does get reflux with spicy food initially was on pantoprazole 1 month prior to the colonoscopy and states that her symptoms improved. Patient does have symptoms of reflux or bloating about 2-3 times a week. Currently patient is not taking pantoprazole regularly. Patient does have a history of H. pylori previously. ROS General General: No weight change, appetite, fatigue, colon cancer or breast cancer HEENT HEENT: No difficulty swallowing, eye injury, eye surgery, swollen glands or hoarseness Endo Endocrine: Yes thyroid disease; No diabetes mellitus, thyroid cancer, Hair loss, heat intolerance or cold intolerance Skin Skin: No rash or changing moles Musc Musculoskeletal: No back problems, arthritis, rheumatoid arthritis, gout or joint pain Cardio Cardiovascular: Yes high blood pressure; No murmur, pacemaker, heart disease, atrial fibrillation, heart attack, heart stent, palpitations, shortness of breath with exertion or chest pain Psych Psychiatric: No depression, anxiety or hearing voices Resp Respiratory: No shortness of breath, No sleep apnea, No cough, No COPD, No asthma, No emphysema and No wheezing Gastro Gastrointestinal: Yes abdominal pain, No nausea or vomiting, No diarrhea, No constipation, No blood in stool, Yes acid reflux, No hemorrhoids, No ulcers, No gallbladder problem and No black,tarry stools Derek Hematologic: No blood thinners, No blood disorders, No bleeding, No anemia and No blood clots Neuro Neurologic: No numbness and No tingling Exam Const General: cooperative, healthy appearing, comfortable and no acute distress [facility] Head: normocephalic and atraumatic Neck Neck: supple Resp Effort Inspection: normal respiratory effort Cardio Rate: regular rate GI Inspection: non-distended Palpation: soft and nontender Skin General: no rashes or lesions noted Neuro General: CN's II-XI intact bilaterally Extrem General: normal to inspection Psych Mental Status: mental status grossly normal Attitude: cooperative Assessment and Plan Assessment and Plan (1) GERD (gastroesophageal reflux disease): Status: Acute (2) Bloating: Status: Acute Orders: Orders EGD 12/27/24 Plan Discussed with patient doing EGD to check and also check a biopsy during that time due to history of H. pylori. Would recommend patient take pantoprazole for about 2 weeks to see if her symptoms improve. Patient does have a prescription at home. Patient is agreeable with plan. I have discussed t (more content not included)... [facility] Colonoscopy Reporton 025 Colonoscopy Report [facility] Medical Records Department [address] [place] [address] Colonoscopy Report MR#: [id number] Acct: [id number] Name: KAYLEE GARRETT Rep #: [id number] : 1980 44 From: Coretta King MD PCP: Dr. Huang Jay MD Status:REG [facility] Patient Name: Kaylee Charles Procedure Date: 11/17/2024 10:23 AM Date of : 1980 Age: 44 Procedure: Colonoscopy Indications: Screening for colorectal malignant neoplasm Providers: Coretta King MD Referring MD: Coretta King MD Medicines: Monitored Anesthesia Care Patient Profile: This is a 44 year old female. Last Colonoscopy: more than 10 years ago. Complications: No immediate complications. Procedure: Pre-Anesthesia Assessment: - Prior to the procedure, a History and Physical was performed, and patient medications and allergies were reviewed. The patient's tolerance of previous anesthesia was also reviewed. The risks and benefits of the procedure and the sedation options and risks were discussed with the patient. All questions were answered, and informed consent was obtained. Prior Anticoagulants: The patient has taken no anticoagulant or antiplatelet agents. ASA Grade Assessment: Per anesthesia. After reviewing the risks and benefits, the patient was deemed in satisfactory condition to undergo the procedure. After I obtained informed consent, the scope was passed under direct vision. Throughout the procedure, the patient's blood pressure, pulse, and oxygen saturations were monitored continuously. The Colonoscope was introduced through the anus and advanced to the cecum, identified by the ileocecal valve. The colonoscopy was performed without difficulty. The patient tolerated the procedure well. The quality of the bowel preparation was good. Scope In: 10:35:12 AM Scope Withdrawal Time 0 hours 6 minutes 6 seconds Scope Out: 10:49:18 AM Total Procedure Duration Time 0 hours 14 minutes 6 seconds Findings: The perianal and digital rectal examinations were normal. The entire examined colon appeared normal on direct and retroflexion views. Impression: - The entire examined colon is normal on direct and retroflexion views. - No specimens collected. Recommendation: - Discharge patient to home. - Resume previous diet. - Continue present medications. - Repeat colonoscopy in 10 years for screening purposes. Procedure Code(s): --- Professional --- G0121, PT, Colorectal cancer screening; colonoscopy on individual not meeting criteria for high risk Diagnosis Code(s): --- Professional --- Z12.11, Encounter for screening for malignant neoplasm of colon CPT copyright 2021 [employer]. All rights reserved. The codes documented in this report are preliminary and upon printing gray cloth tender review may be revised to meet current compliance requirements. MD Coretta Daniel MD 11/17/2024 10:53:39 AM This report has been signed electronically. Number of Addenda: 0 Note Initiated On: 11/17/2024 10:23 AM 11/17/24 1053 Date Coretta King MD Cosigner Signature: Date (if indicated) CC: Dr. Huang Jay MD; Dr. Coretta King MD Date Dictated: 11/17/24 1023 Date Transcribed: Public Events Facilities Rental Manager: TR Signed [facility] MR/POSTOP.Georges 11-17-2024 MR/POSTOP.[facility] Medical Records Department [address] [place] [address] Anesthesia Postop Eval I 11/17/24 1055 MR#: [id number] Acct: [id number] Name: KAYLEE GARRETT Rep #: [id number] : 1980 44 From: Archana Kelley CRNA PCP: Dr. Huang Jay MD Status:[facility] Y Race: H Location: [place] [address] Anesthesia: Postop Eval I Current Vital Signs Temperature: 97.5 F Pulse Rate: 80 Blood Pressure: 95/61 Respiratory Rate: 16 Pulse Ox: 96 Oxygen Delivery Method: Room Air Assessment Airway patent: Yes Spontaneous unlabored respirations: Yes Mental status: Asleep nausea: No Vomiting: No Anesthesia Complication: No Fluid Hydration Crystalloid volume administer (ml): 500 Total IV fluid infused: 500 Progress Note Anesthesia document: Postop Eval 1 completed: Yes 11/17/24 1056 Date Archana Kelley DEPENDENCY CASE MANAGER Cosigner Signature: Date CC: Signed [facility] MR/HCFSZQCQ1ul 11-17-2024 [facility] Medical Records Department [address] [place] [address] Anesthesia Postop Eval II 11/17/24 1155 MR#: [id number] Acct: [id number] Name: KAYLEE GARRETT Rep #: [id number] : 1980 44 From: Dez Roca MD PCP: Dr. Huang Jay MD Status:[facility] Y Race: H Location: [place] Anesthesia Postop Eval I Sum Postop Eval Completion status Anesthesia document: Postop Eval 1 completed: Yes Anesthesia Postop Eval I Summary Anesthesia Postop Eval I Summary: Anesthesia Postop Eval I: Assessment Summary Airway patent Yes 11/17/24 10:56 DEPENDENCY CASE MANAGER.GRACIELAOBAisha Spontaneous unlabored Yes 11/17/24 10:56 DEPENDENCY CASE MANAGER.GRACIELAOBAisha respirations Mental status Asleep 11/17/24 10:56 DEPENDENCY CASE MANAGER.SKOBY nausea No 11/17/24 10:56 DEPENDENCY CASE MANAGER.SKOBY Vomiting No 11/17/24 10:56 DEPENDENCY CASE MANAGER.SKOBY Anesthesia Postop Eval I: Fluid Summary Crystalloid volume administer 500 11/17/24 10:56 DEPENDENCY CASE MANAGER.SKOBY (ml) Colloids volume administered ( ml) Blood Product volume administered (ml) Total IV fluid infused 500 11/17/24 10:56 DEPENDENCY CASE MANAGER.SKOBY Anesthesia Postop Eval I: Summary Notes Anesthesia Complication No 11/17/24 10:56 DEPENDENCY CASE MANAGER.SKOBAisha Anesthesia Complication Comment: Post-operative progress note Anesthesia: Postop Eval II Evaluation Mental status: Awake Pain Level: 0 nausea: No Vomiting: No 11/17/24 1155 Date Dez Roca MD Cosign Signature: Date CC: Signed [facility]24 /[facility] Medical Records Department [address] [place] [address] PAT - Anesthesia 11/12/24 1342 MR#: [id number] Acct: [id number] Name: KAYLEE GARRETT Rep #: [id number] : 1980 44 From: Dez Roca MD PCP: Dr. Huang Jay MD Status:PRE [facility] Y Race: H Location: [place] Pre-Assessment Diagnosis/Proposed Procedure Planned Operative Procedure(s): COLONOSCOPY Anesthesia History Anesthesia History - drafter structural: Anesthesia History - drafter structural Hx Hospitalization No 11/12/24 13:09 Any Problems With Anesthesia No 11/12/24 13:09 Cholinesterase deficiency No 11/12/24 13:09 You/Your Family Experience No 11/12/24 13:09 fever (hyperthermia) with Relationship Recent Exposure to Contagious Disease Does patient have nerve No 11/12/24 13:09 stimulator Patient instructed to have device shut off --Does patient have Pacemaker or ICD? When Was Last Pacemaker Check QUESTION #4 FULL TEXT: You/Your Family Experience fever (hyperthermia) with Anesthesia Last Oral Intake Last Oral intake: Last Oral Intake NPO since Meds taken in AM with sips of water? 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 - drafter structural: PONV - drafter structural Female Yes 11/12/24 13:09 HX of Motion Sickness No 11/12/24 13:09 HX of N/V After Surgery No 11/12/24 13:09 Non-Smoker No 11/12/24 13:09 Duration of Surgery greater No 11/12/24 13:09 than 60 minutes Number of Risk Factors 1 11/12/24 13:09 PONV Score Low Risk 11/12/24 13:09 Height Weight Height Weight: Anesthesia: Height Weight Height 4 ft 11 in 09/08/24 13:10 Respiratory Assessment Respiratory Assessment - drafter structural: Respiratory Tract Infection Hx - drafter structural Hx Respiratory Tract Infection No 11/12/24 13:09 STOP Sleep Apnea STOP Sleep Apnea - drafter structural: STOP Sleep Apnea - drafter structural Hx Hypertension Yes 11/12/24 13:09 Hx Sleep Apnea No 11/12/24 13:09 CPAP BIPAP Do you snore loudly (louder No 11/12/24 13:09 than talking or can be heard Do you often feel tired/ No 11/12/24 13:09 fatigued/ sleepy during daytime? Has anyone observed you stop No 11/12/24 13:09 breathing during sleep? STOP Results Negative 11/12/24 13:09 QUESTION #5 FULL TEXT : Do you snore loudly (louder than talking or can be heard through closed doors)? Tobacco Use History Tobacco Use History - drafter structural: Tobacco Use History - drafter structural Tobacco Use Smoking Status Current every day smoker 11/12/24 13:09 Hx Tobacco Use Yes 11/12/24 13:09 Years Smoking Packs Smoked per Day Smoking Cessation Date was within the last 15 years Hx Smoking Cessation Date Hx Smoking Cessation Counseling Hematologic Medial History Hematologic Hx - drafter structural: Hematologic Medical Hx - huc Hx of Blood Transfusion No 11/12/24 13:09 Hx of Transfusion in last 3 No 11/12/24 13:09 Months Date of Last Transfusion (if within last 3 months) Ever experience any problems No 11/12/24 13:09 with transfusion(s)? Specify any problems Hx of Preganancy in last 3 No 11/12/24 13:09 Months Nurse Filling Out Transfusion MGRIFFCA 11/12/24 13:09 Questions: Date: 11/12/24 11/12/24 13:09 Time: 13:12 11/12/24 13:09 Patient unable to answer at this time (ie. confused, unrespo /Reproduction History /Reproductive History - drafter structural: /Reproductive Hx- drafter structural Hx Now No 11/12/24 13:09 Gestational Age (in weeks): EDC: Hx Hx Para Hx Section SAB No 11/12/24 13:09 [facility] Medical History (Updated 11/12/24 @ 13:20 by Lynsey Aguilar) Alcohol use High cholesterol Smoker Leg cramps Cardiology follow-up encounter GERD (gastroesophageal reflux disease) Preventative health care Colon cancer screening Establishing care with new doctor, encounter for Abdominal pain Hypothyroidism Hypertension Home Medications ???Medication ???Instructions ???Recorded ???Last Taken ???Type olmesartan 20 1 tab PO QDAY #90 tabs 09/10/24 Un known Rx mg-hydrochlorothiazide 12.5 mg tablet levothyroxine 75 mcg tablet 75 mcg PO QDAY #90 tabs 10/11/24 U nknown Rx bromelains 500 mg tablet 500 mg PO QODAY 11/12/24 Unknown H istory Allergy/AdvReac Type Severity Reaction Status Date / Time No Known Allergies Allergy Verified 11/12/24 13:06 Family History Father Diabetes Grandfather Colon cancer Surgical History (Updated 11/12/24 @ 13:09 by Lynsey Aguilar) Hi (more content not included)... [facility] Breast imaging reportOrdered By: Daniela Ahuja on 09-15-2024 Study report [facility] Imaging Services [address] [address] SCRN MAMM (CAD)W/JORDAN BORREGO MR#: [id number] Acct: [id number] Name: KAYLEE GARRETT Rep #: [id number] : 1980 F 44 From: Kassy Ahuja MD PCP: Dr. Huang Jay MD Status: R EG CLI Study:SCRN MAMM (CAD)W/JORDAN BILAT Date of Exa m: 09/15/24 Exam# [id number] Ordering Dr: Erik Jay MD EXAM: SCRN MAMM (CAD)W/JORDAN BILAT 09/15/2024 CLINICAL HISTORY: F, Age 44 y/o , BREAST CANCER SCREENING TECHNIQUE: Bilateral screening digital breast tomosynthesis with 2D and 3D images. Computeraided detection. COMPARISON: Baseline examination, no priors. FINDINGS: TISSUE DENSITY: The breast tissue is heterogenously dense, which may obscure small masses. The mammogram demonstrates that the patient has dense breasts. Supplemental screening with whole breast ultrasound or MRI may be considered for further evaluation. Bilateral Breast Mammographic Findings: There are multiple bilateral circumscribed masses, which is typically a benign pattern. No significant masses, calcifications or other abnormalities are identified. BI/SCRN MAMM (CAD)W/JORDAN BILAT IMPRESSION: Right Breast: BIRADS 2 BENIGN FINDING. Left Breast: BIRADS 2 BENIGN FINDING. OVERALL FINAL ASSESSMENT: BIRADS 2 BENIGN FINDING. RECOMMENDATION: Routine annual follow-up in 1 Year A letter with findings and recommendations will be mailed to the patient. Reading Location: [facility] CC: Dr. Huang Jay MD ~ Public Events Facilities Rental Manager: Signed [facility] SCRN MAMM (CAD)W/JORDAN BILATo n 09-15-2024 SCRN MAMM (CAD)W/JORDAN BILAT [facility] Imaging Services [address] [place] [address] SCRN MAMM (CAD)W/JORDAN BILAT MR#: [id number] Acct: [id number] Name: KAYLEE GARRETT Rep #: [id number] : 1980 F 44 From: Daniela Ahuja MD PCP: Dr. Huang Jay MD Status: REG CLI Study: SCRN MAMM (CAD)W/JORDAN BILAT Date of Exam: 03/03 Exam# [id number] Ordering Dr: Huang Jay MD EXAM: SCRN MAMM (CAD)W/JORDAN BILAT 09/15/2024 CLINICAL HISTORY: F, Age 44 y/o , BREAST CANCER SCREENING TECHNIQUE: Bilateral screening digital breast tomosynthesis with 2D and 3D images. Computer aided detection. COMPARISON: Baseline examination, no priors. FINDINGS: TISSUE DENSITY: The breast tissue is heterogenously dense, which may obscure small masses. The mammogram demonstrates that the patient has dense breasts. Supplemental screening with whole breast ultrasound or MRI may be considered for further evaluation. Bilateral Breast Mammographic Findings: There are multiple bilateral circumscribed masses, which is typically a benign pattern. No significant masses, calcifications or other abnormalities are identified. BI/SCRN MAMM (CAD)W/JORDAN BILAT IMPRESSION: Right Breast: BIRADS 2 BENIGN FINDING. Left Breast: BIRADS 2 BENIGN FINDING. OVERALL FINAL ASSESSMENT: BIRADS 2 BENIGN FINDING. RECOMMENDATION: Routine annual follow-up in 1 Year A letter with findings and recommendations will be mailed to the patient. Reading Location: [facility] CC: Dr. Huang Jay MD Public Events Facilities Rental Manager: Signed [facility] Anion gap in Serum or Plasma Ordered By: Huang Jay on 09-08-2024 Anion gap [Moles/Vol] 14 mmol/L 5-15 [facility] BUN/creatinine ratioOrdered By: Huang Jay on 09-08-2024 Urea nitrogen/Creatinine [Mass ratio] 20.3 mg/mg High 10-20 [facility] Bilirubin, totalOrdered By: Huang Jay on 09-08-2024 Bilirubin [Mass/Vol] 0.50 mg/dL 0.00-1.30 [facility] Calculated very low density lipoprotein (VLDL) cholesterol measurementOrdered By: Huang Jay on 09-08-2024 Calculated very low density lipoprotein (VLDL) cholesterol measurement 50 mg/dL High 5-40 [facility] VLDL Cholesterol 50 mg/dL High 5-40 [facility] Carbon dioxide, total [Moles /volume] in Central venous bloodOrdered By: Huang Jay on 09-08-2024 CO2 [Moles/Vol] 23.8 mmol/L 21.0-32.0 [facility] Chloride assayOrdered By: Beth Jay on 09-08-2024 Chloride [Moles/Vol] 104 mmol/L 98-108 [facility] Comprehensive Metabolic Prof ilon 09-08-2024 Albumin [Mass/Vol] 4.4 g/dL Normal 3.5-5.0 [facility] Comment on above: Performed By: #### L 500.4050, L500.4100 #### [facility] [address] [place], [address] Albumin/Globulin [Mass ratio] 1.2 {ratio} Normal 0.9-2.4 [facility] Comment on above: Performed By: #### L 500.4050, L500.4100 #### [facility] [address] [place], [address] ALK PHOS 103 U/L Normal 35-104 [facility] Comment on above: Performed By: #### L 500.4050, L500.4100 #### [facility] [address] [place], [address] ALT [Catalytic activity/Vol] 25 U/L Normal <=34 [facility] Comment on above: Performed By: #### L 500.4050, L500.4100 #### [facility] [address] [place], [address] AST [Catalytic activity/Vol] 24 U/L Normal <=31 [facility] Comment on above: Performed By: #### L 500.4050, L500.4100 #### [facility] [address] [place], [address] Bilirubin [Mass/Vol] 0.50 mg/dL Normal 0.00-1.30 [facility] Comment on above: Performed By: #### L 500.4050, L500.4100 #### [facility] [address] [place], [address] BUN/CRE 20.3 RATIO High 10-20 [facility] Comment on above: Performed By: #### L 500.4050, L500.4100 #### [facility] [address] [place], [address] Calcium [Mass/Vol] 9.9 mg/dL Normal 7.6-11.0 [facility] Comment on above: Performed By: #### L 500.4050, L500.4100 #### [facility] [address] [place], [address] Chloride [Moles/Vol] 104 mmol/L Normal 98-108 [facility] Comment on above: Performed By: #### L 500.4050, L500.4100 #### [facility] [address] [place], [address] CO2 [Moles/Vol] 23.8 mmol/L Normal 21.0-32.0 [facility] Comment on above: Performed By: #### L 500.4050, L500.4100 #### [facility] [address] [place], [address] Creatinine [Mass/Vol] 0.87 mg/dL Normal 0.70-1.20 [facility] Comment on above: Performed By: #### L 500.4050, L500.4100 #### [facility] [address] [place], [address] GAP 14 Normal 5-15 [facility] Comment on above: Performed By: #### L 500.4050, L500.4100 #### [facility] [address] [place], [address] GFR/1.73 sq M.predicted among non-blacks MDRD (S/P/Bld) [Vol rate/Area] 84 mL/min/{1.73_m2} Normal >60 [facility] Comment on above: Result Comment: mL/m in/1.73m2 CKD-EPI Creatinine Equation (2020) Performed By: #### L 500.4050, L500.4100 #### [facility] [address] [place], [address] Globulin (S) [Mass/Vol] 3.6 g/dL Normal 2.2-4.2 [facility] Comment on above: Performed By: #### L 500.4050, L500.4100 #### [facility] [address] [place], [address] Glucose [Mass/Vol] 113 mg/dL High 70-99 [facility] Comment on above: Performed By: #### L 500.4050, L500.4100 #### [facility] [address] [place], [address] Potassium [Moles/Vol] 4.2 mmol/L Normal 3.3-5.1 [facility] Comment on above: Performed By: #### L 500.4050, L500.4100 #### [facility] [address] [place], [address] Sodium [Moles/Vol] 141 mmol/L Normal 133-145 [facility] Comment on above: Performed By: #### L 500.4050, L500.4100 #### [facility] [address] [place], [address] T PROT 8.0 g/dL Normal 5.9-8.4 [facility] Comment on above: Performed By: #### L 500.4050, L500.4100 #### [facility] [address] [place], [address] Urea nitrogen [Mass/Vol] 18 mg/dL Normal 4-19 [facility] Comment on above: Performed By: #### L 500.4050, L500.4100 #### [facility] [address] [place], [address] GFR/1.73 sq M.predicted amaya g non-blacks MDRD (S/P/Bld) [Vol rate/Area]Ordered By: Huang Jay on 09-08-2024 Estimated GFR (MDRD) Non-Af Amer 84 >60 [facility] Comment on above: mL/min/1.73m2 CKD-EP I Creatinine Equation (2020) Glomerular filtration rate ( GFR) estimation/1.73 sq m using serum, plasma, or whole bOrdered By: Huang Jay on 09-08-2024 GFR/1.73 sq M.predicted among non-blacks MDRD (S/P/Bld) [Vol rate/Area] 84 mL/min/{1.73_m2} >60 [facility] Comment on above: mL/min/1.73m2 CKD-EP I Creatinine Equation (2020) Internal Medicine Office Vis itojodie 09-08-2024 Internal Medicine Office Visit [facility] [address] [place] [address] [place] [address] OFFICE VISIT Date of Service: 09/08/24 MR#: [id number] Acct: [id number] Name: KAYLEE GARRETT Rep #: [id number] : 1980 Provider: Dr. Huang booker MD Age/Sex: 44/F Location: [facility] Status: Signed Intake Vital Signs 04/09/24 13:44 08/06/24 11:11 09/08/24 13:10 Height 4 ft 11 in 4 ft 11 in 4 ft 11 in Weight: 180 lb BMI 36.3 BP 108/80 Blood Pressure Location Lt brachial Position Sitting Respiration 16 Pulse 70 Pulse Source Monitor Temp 97.8 F Temp Source Temporal Pulse Oximetry (%) 99 Oxygen Delivery Method room air Intake Visit Reasons: 5 M Chief Complaint: Follow-up/preventative Is patient in pain?: No Allergies No Known Allergies Allergy (Verified 09/08/24 13:06) Medications ???Medication ???Instructions ???Recorded ???Confirmed ???Type levothyroxine 75 mcg tablet 75 mcg PO QDAY #90 tabs 04/12/24 0 09/08/24 Rx olmesartan 20 1 tab PO QDAY #90 tabs 05/10/24 Rx mg-hydrochlorothiazide 12.5 mg tablet omeprazole 40 mg capsule,delayed 40 mg PO QDAY #90 caps 09/08/24 Rx release PFSH Medical History (Updated 09/08/24 @ 14:[address] Huang Jay MD) GERD (gastroesophageal reflux disease) Preventative health care Colon cancer screening Establishing care with new doctor, encounter for Abdominal pain Hypothyroidism Hypertension Surgical History History of unilateral salpingectomy H/O: hysterectomy Family History Father Diabetes Grandfather Colon cancer Social History household members: spouse and children current occupational status: employed Smoking Status: Current some day smoker tobacco type: cigarettes alcohol intake: current alcohol intake frequency: holidays/special occasions only substance use type: does not use what type of physical activity do you participate in: walking seatbelt use: always do you feel safe at home: Yes HPI HPI Chief Complaint: Follow-up/preventative Details: KAYLEE CHARLES, is a 44 F who presents to the office today for follow-up/preventative. Since her last visit, was seen by her occupational medicine specialist in [place] and started on omeprazole. Abdominal discomfort which she had reported at her last visit said to have resolved. Has not had a colonoscopy in recent years, recently turned 44. No dark or bloody stool or unintentional weight changes. Family history of colon cancer in her grandfather. No tobacco or alcohol abuse. Last saw [facility] [facility] over a year ago, history of hysterectomy. Other chronic medical conditions are stable. ROS Const Constitutional: No body ache, chills, excessive sweating, fatigue, fever(s), frequent falls, headache(s), snoring, weakness, sleep problems or change in appetite Eyes Eyes: No blurry vision, change in vision, floaters, visual disturbances or Light sensitivity ENT ENT: No abnormal hearing, ear or mastoid pain, tinnitus, balance problems, nosebleed/epistaxis, nasal congestion, nasal discharge, headache(s), neck pain or sore throat Resp Respiratory: No cough, excessive phlegm production, pain on inspiration, shortness of breath, snoring or wheezing Cardio Cardiology: No chest pain at rest, chest pain with exertion, excessive sweating, shortness of breath, dyspnea on exertion, lightheadedness, orthopnea or palpitations Gastro GI: No abdominal pain, change in bowel habits, constipation, cramping, diarrhea or nausea/dyspepsia Genitourinary-Female: No burning urination, painful urination, urinary incontinence, urinary frequency, suprapubic fullness or side pain Musc Musculoskeletal: Positive for joint pain (RIGHT SHOULDER PAIN AT TIMES); No abnormal gait, back pain, limited range of motion, muscle cramps, muscle weakness, neck pain or numbness Skin Skin: No dry skin, redness, lesions, itchy eyes, rash or wounds Neuro Neurology: No abnormal gait, abnormal hearing, behavioral changes, unsteady gait/balance, weakness, frequent falls, headache(s), memory loss, numbness or visual disturbances Psych Psychiatric: No anxiety, No behavioral changes, No change in appetite, No depression, No memory loss, No panic attacks and No Thoughts of harming yourself/Others Endo Endocrine: No cold intolerance, excessive sweating, fatigue, flushing, heat intolerance, increased thirst/drinking or increased hunger Aller/Imm Allergy/Immunologic: No itchy eyes, seasonal allergy symptoms, hives or wheezing Derek/Lymp Hematologic/Lymphatic: No easy bleeding or easy bruising Exam Const General: cooperative, comfortable and no acute distress Orientation: alert, awake and oriented x3 HE (more content not included)... Normal [facility] LDL calc ser/plasOrdered By: Huang Jay on 09-08-2024 Cholesterol in LDL [Mass/Vol] 121 mg/dL [facility] Comment on above: Fioujkhabg=285-577 m g/dL & Higher Hxvw=300 mg/dL or greater LDL Cholesterol, Calculated 121 mg/dL [facility] Comment on above: Nurrjbphci=838-221 m g/dL & Higher Owkz=519 mg/dL or greater Laboratory - Chemistry and C hemistry - challengeOrdered By: Huang Jay on 04-02-2025 AST [Catalytic activity/Vol] 24 U/L <32 [facility] Lipid Profileon 09-08-2024 CHOL:HDL 4.42 Normal [facility] Comment on above: Performed By: #### L 500.4050, L500.4100 #### [facility] [address] [place], [address] Cholesterol [Mass/Vol] 221 mg/dL High <=200 [facility] Comment on above: Result Comment: Chol esterol level, Desirable <200 mg/dL Borderline high cholesterol 200-239 mg/dL High cholesterol >=240 mg/dL Recommendations of the NCEP Adult Treatment Panel for the following risk-cutoff thresholds for the [place] population. Performed By: #### L 500.4050, L500.4100 #### [facility] [address] [place], [address] Cholesterol in HDL [Mass/Vol] 50 mg/dL Normal [facility] Comment on above: Result Comment: Nel onal Cholesterol Education Program (NCEP) guidelines: <40 mg/dL: Low HDL-cholesterol (major risk factor for CHD) >= 60 mg/dL: High HDL-cholesterol (negative risk factor for CHD) HDL-cholesterol is affected by a number of factors, e.g. smoking, exercise, hormones, sex and age. Performed By: #### L 500.4050, L500.4100 #### [facility] [address] [place], [address] Cholesterol in LDL [Mass/Vol] 121 mg/dL Normal [facility] Comment on above: Result Comment: Bord bserfu=034-276 mg/dL Higher Ljxd=399 mg/dL or greater Performed By: #### L 500.4050, L500.4100 #### [facility] [address] [place], [address] Cholesterol in VLDL [Mass/Vol] 50 mg/dL High 5-40 [facility] Comment on above: Performed By: #### L 500.4050, L500.4100 #### [facility] [address] [place], [place], [address] Triglyceride [Mass/Vol] 249 mg/dL High [facility] Comment on above: Result Comment: The drugs N-Acetylcysteine and Metamizole may falsely depress this assay. Normal range: <150 mg/dL Borderline High: 150-199 mg/dL High: 200-499 mg/dL Very High: >500 mg/dL Performed By: #### L 500.4050, L500.4100 #### [facility] [address] [place], [address] Potassium (Unsp spec) [Mass/ Vol]Ordered By: Huang Jay on 09-08-2024 Potassium [Moles/Vol] 4.2 mmol/L 3.3-5.1 [facility] Potassium measurement (mass/ volume)Ordered By: Huang Jay on 09-08-2024 Potassium (Unsp spec) [Mass/Vol] 4.2 mmol/L 3.3-5.1 [facility] Screening total cholesterol/ high density lipoprotein (HDL) cholesterol ratioOrdered By: Huang Jay on 09-08-2024 Cholesterol.total/Chol esterol in HDL [Mass ratio] 4.42 {ratio} [facility] Serum creatinine measurement (mass/volume)Ordered By: Huang Jay on 09-08-2024 Creatinine [Mass/Vol] 0.87 mg/dL 0.70-1.20 [facility] Serum globulin measurementOr dered By: Huang Jay on 09-08-2024 Globulin (S) [Mass/Vol] 3.6 g/dL 2.2-4.2 [facility] Serum glucose measurement (m ass/volume)Ordered By: Huang Jay on 09-08-2024 Glucose [Mass/Vol] 113 mg/dL High 70-99 [facility] Serum or plasma alanine soto otransferase (ALT) measurementOrdered By: Huang Jay on 09-08-2024 ALT [Catalytic activity/Vol] 25 U/L <35 [facility] Serum or plasma albumin jasper urement (mass/volume)Ordered By: Huang Jay on 09-08-2024 Albumin [Mass/Vol] 4.4 g/dL 3.5-5.0 [facility] Serum or plasma albumin/glob ulin mass ratioOrdered By: daron Jay on 09-08-2024 Albumin/Globulin [Mass ratio] 1.2 {ratio} 0.9-2.4 [facility] Serum or plasma alkaline franklyn sphatase measurementOrdered By: Huang Jay 09-08-2024 ALP [Catalytic activity/Vol] 103 U/L 35-104 [facility] Serum or plasma calcium jasper urement (mass/volume)Ordered By: Huang Jay 09-08-2024 Calcium [Mass/Vol] 9.9 mg/dL 7.6-11.0 [facility] Serum or plasma cholesterol in HDL measurement (mass/volume)Ordered By: Huang Jay 09-08-2024 Cholesterol in HDL [Mass/Vol] 50 mg/dL >40 [facility] Comment on above: National Cholesterol Education Program (NCEP) guidelines:<40 mg/dL: Low HDL-cholesterol (major risk factor for CHD)>= 60 mg/dL: High HDL-cholesterol (negative risk factor for CHD)HDL-cholesterol is affected by a number of factors, e.g. smoking, exercise, hormones, sex and age. Serum or plasma cholesterol measurement (mass/volume)Ordered By: Huang Jay 09-08-2024 Cholesterol [Mass/Vol] 221 mg/dL High <201 [facility] Comment on above: Cholesterol level, D esirable <200 mg/dLBorderline high cholesterol 200-239 mg/dLHigh cholesterol >=240 mg/dLRecommendations of the NCEP Adult Treatment Panel for the following risk-cutoff thresholds for the [place] population. Serum or plasma urea nitroge n measurement (mass/volume)Ordered By: Huang Jay 09-08-2024 Urea nitrogen [Mass/Vol] 18 mg/dL 4-19 [facility] Sodium levelOrdered By: Darron Jay 09-08-2024 Sodium [Moles/Vol] 141 mmol/L 133-145 [facility] Total proteinOrdered By: Dorian Jay on 09-08-2024 Protein [Mass/Vol] 8.0 g/dL 5.9-8.4 [facility] Triglycerides measurementOrd ered By: Huang Jay on 09-08-2024 Triglyceride [Mass/Vol] 249 mg/dL High <199 [facility] Comment on above: The drugs N-Acetylcy steine and Metamizole may falsely depress this assay. Normal range: <150 mg/dLBorderline High: 150-199 mg/dLHigh: 200-499 mg/dLVery High: >500 mg/dL Basic Metabolic Profile (BMP )on 04-09-2024 BUN/CRE 19.9 RATIO Normal 10-20 [facility] Comment on above: Performed By: #### L 501.9520, L500.2500 #### [facility] [address] [place], [address] CA,Total 9.6 mg/dL Normal 8.5-10.1 [facility] Comment on above: Performed By: #### L 501.9520, L500.2500 #### [facility] [address] [place], [address] Chloride [Moles/Vol] 105 mmol/L Normal 98-107 [facility] Comment on above: Performed By: #### L 501.9520, L500.2500 #### [facility] [address] [place], [address] CO2 [Moles/Vol] 30.0 mmol/L Normal 21.0-32.0 [facility] Comment on above: Performed By: #### L 501.9520, L500.2500 #### [facility] [address] [place], [address] Creatinine [Mass/Vol] 0.95 mg/dL Normal 0.55-1.02 [facility] Comment on above: Result Comment: The validity of the calculated GFR GFRAA in patients over 70 years has not been determined. Clinical correlation is essential. Performed By: #### L 501.9520, L500.2500 #### [facility] [address] [place], [address] EST GFR - AA 82 mL/min Normal >60 [facility] Comment on above: Result Comment: Afri can Somali GFR Calc Performed By: #### L 501.9520, L500.2500 #### [facility] [address] [place], [address] GAP 5 Normal 5-15 [facility] Comment on above: Performed By: #### L 501.9520, L500.2500 #### [facility] [address] [place], [address] GFR/1.73 sq M.predicted among non-blacks MDRD (S/P/Bld) [Vol rate/Area] 67 mL/min/{1.73_m2} Normal >60 [facility] Comment on above: Result Comment: Non- GFR Calc Performed By: #### L 501.9520, L500.2500 #### [facility] [address] [place], [address] Glucose [Mass/Vol] 89 mg/dL Normal 74-106 [facility] Comment on above: Performed By: #### L 501.9520, L500.2500 #### [facility] [address] [place], [address] Potassium [Moles/Vol] 4.1 mmol/L Normal 3.5-5.1 [facility] Comment on above: Performed By: #### L 501.9520, L500.2500 #### [facility] [address] [place], [address] Sodium [Moles/Vol] 140 mmol/L Normal 136-145 [facility] Comment on above: Performed By: #### L 501.9520, L500.2500 #### [facility] [address] [place], [address] Urea nitrogen [Mass/Vol] 19 mg/dL High 7-18 [facility] Comment on above: Performed By: #### L 501.9520, L500.2500 #### [facility] [address] [place], [address] Internal Medicine Office Vis iton 04-09-2024 Internal Medicine Office Visit [facility] [address] [place] [address] [place] [address] OFFICE VISIT Date of Service: 04/09/24 MR#: [id number] Acct: [id number] Name: KAYLEE GARRETT Rep #: [id number] : 1980 Provider: Dr. Huang booker MD Age/Sex: 43/F Location: [facility] Status: Signed Intake Vital Signs 12/09/23 17:22 04/09/24 13:44 Height 4 ft 11.06 in 4 ft 11 in Weight: 178 lb BMI 35.9 BP 120/80 Blood Pressure Location Lt brachial Position Sitting Respiration 16 Pulse 79 Pulse Source Monitor Temp 98.2 F Temp Source Temporal Pulse Oximetry (%) 99 Oxygen Delivery Method room air Intake Visit Reasons: EST NEW PT - PPWK SENT Chief Complaint: NEW PATIENT ESTABLISH CARE Is patient in pain?: Yes (LUQ ) Pain scale (1-10): 5 Allergies No Known Allergies Allergy (Verified 04/09/24 13:37) [facility] Medical History (Updated 04/09/24 @ 14:[address] Huang Jay MD) Establishing care with new doctor, encounter for Abdominal pain Hypothyroidism Hypertension Surgical History History of unilateral salpingectomy H/O: hysterectomy Family History (Updated 04/09/24 @ 13:42 by Linda Schmidt) Father Diabetes Grandfather Colon cancer Social History (Updated 04/09/24 @ 13:44 by Linda Schmidt) household members: spouse and children current occupational status: employed Smoking Status: Current some day smoker tobacco type: cigarettes alcohol intake: current alcohol intake frequency: holidays/special occasions only substance use type: does not use what type of physical activity do you participate in: walking seatbelt use: always do you feel safe at home: Yes HPI HPI Chief Complaint: NEW PATIENT ESTABLISH CARE Details: KAYLEE CHARLES, is a 43 F who presents to the office today to establish care. Also has some concerns. Recently seen at the emergency room due to left upper quadrant abdominal pain. Workup with no acute concerns. She states that pain started approximately 5 months ago however 3 months ago became really bad for which she presented to the emergency room. She was started on pantoprazole which initially helped but lately, has noted recurrence and now occasional right sided pain as well. No change in bowel habit. Pain is said to be worse with stress and with certain foods. 1 episode of bright red blood in her stool however, she reports a history of hemorrhoids. Has not had a scope. She also reports a history of hypertension. Currently on Fimasartan hydrochlorothiazide which is a combination she gets from [place]. This is not available here, she is open to switching. History of hypothyroidism on levothyroxine. She reports compliance with her medication. No heat or cold intolerance or unintentional weight changes. ROS Const Constitutional: Positive for other (LUQ PAIN X 3 MONTHS COMES AND GOES); No body ache, chills, excessive sweating, fatigue, fever(s), frequent falls, headache(s), snoring, weakness, sleep problems or change in appetite Eyes Eyes: No blurry vision, change in vision, bulging eyes, floaters or Light sensitivity ENT ENT: No abnormal hearing, ear or mastoid pain, tinnitus, balance problems, nosebleed/epistaxis, nasal congestion, nasal discharge, headache(s), neck pain or sore throat Resp Respiratory: No cough, excessive phlegm production, pain on inspiration, shortness of breath, snoring or wheezing Cardio Cardiology: No chest pain at rest, chest pain with exertion, excessive sweating, shortness of breath, dyspnea on exertion, lightheadedness, orthopnea or palpitations Gastro GI: No abdominal pain, change in bowel habits, constipation, cramping, diarrhea or nausea/dyspepsia Genitourinary-Female: No burning urination, painful urination, urinary incontinence, urinary frequency, suprapubic fullness or side pain Musc Musculoskeletal: No abnormal gait, joint pain, back pain, limited range of motion, muscle weakness, neck pain or numbness Skin Skin: No dry skin, redness, excessive hair growth, yellowing of the eye, lesions, itchy eyes, rash or wounds Neuro Neurology: No abnormal gait, abnormal hearing, behavioral changes, unsteady gait/balance, weakness, frequent falls, headache(s), memory loss or numbness Psych Psychiatric: No anxiety, No behavioral changes, No change in appetite, No depression, No memory loss, No panic attacks and No Thoughts of harming yourself/Others Endo Endocrine: No cold intolerance, excessive sweating, fatigue, flushing, heat intolerance, increased thirst/drinking or increased hunger Aller/Imm Allergy/Immunologic: No itchy eyes, seasonal allergy symptoms, hives or wheezing Derek/Lymp Hematologic/Lymphatic: No easy bleeding or easy bruising Exam Const General: cooperative, comfortable and no acute distress (more content not included)... Normal [facility] Thyroid Stim Hormone (TSH)on 04-09-2024 TSH 2.700 uIU/mL Normal 0.358-3.740 [facility] Comment on above: Performed By: #### L 501.9520, L500.2500 #### [facility] [address] [place] [address], [address] Vital Signs Date Time Vital Sign Value Performing Clinician Rachid garay 12-14-2024 13:59-0400 Body height 149.[address] Huang Jay MD Work Phone: [facility] 12-14-2024 13:59-0400 Body mass index (BMI) [Ratio] 35.7 kg/m2 Dr. Huang Jay MD Work Phone: [facility] 12-14-2024 13:59-0400 Body temperature 97.5 [degF] Dr. Huang Jay MD Work Phone: [facility] 12-14-2024 13:59-0400 Body weight 80.[address] Huang Jay MD Work Phone: [facility] 12-14-2024 13:59-0400 Diastolic blood pressure 68 mm[Hg] Dr. Huang Jay MD Work Phone: [facility] 12-14-2024 13:59-0400 Heart rate 60 /min Dr. Huang Jay MD Work Phone: [facility] 12-14-2024 13:59-0400 Respiratory rate 17 /min Dr. Huang Jay MD Work Phone: [facility] 12-14-2024 13:59-0400 SaO2% (BldA) [Mass fraction] 94 % Dr. Huang Jay MD Work Phone: [facility] 12-14-2024 13:59-0400 Systolic blood pressure 111 mm[Hg] Dr. Huang Jay MD Work Phone: [facility] 11-17-2024 11:17-0400 Body temperature 97.8 [degF] Dr. Huang Jay MD Work Phone: [facility] 11-17-2024 11:17-0400 Diastolic blood pressure 76 mm[Hg] Dr. Huang Jay MD Work Phone: [facility] 11-17-2024 11:17-0400 Heart rate 72 /min Dr. Huang Jay MD Work Phone: [facility] 11-17-2024 11:17-0400 Respiratory rate 16 /min Dr. Huang Jay MD Work Phone: [facility] 11-17-2024 11:17-0400 SaO2% (BldA) [Mass fraction] 100 % Dr. Huang Jay MD Work Phone: [facility] 11-17-2024 11:17-0400 Systolic blood pressure 117 mm[Hg] Dr. Huang Jay MD Work Phone: [facility] 11-17-2024 09:15-0400 Body height 149.[address] Huang Jay MD Work Phone: [facility] 11-17-2024 09:15-0400 Body mass index (BMI) [Ratio] 35.2 kg/m2 Dr. Huang Jay MD Work Phone: [facility] 11-17-2024 09:15-0400 Body weight [address] Huang Jay MD Work Phone: [facility] 09-08-2024 13:10-0400 Body height 149.[address] Huang Jay MD Work Phone: [facility] 09-08-2024 13:10-0400 Body mass index (BMI) [Ratio] 36.3 kg/m2 Dr. Huang Jay MD Work Phone: [facility] 09-08-2024 13:10-0400 Body temperature 97.8 [degF] Dr. Huang Jay MD Work Phone: [facility] 09-08-2024 13:10-0400 Body weight 81.[address] Huang Jay MD Work Phone: [facility] 09-08-2024 13:10-0400 Diastolic blood pressure 80 mm[Hg] Dr. Huang Jay MD Work Phone: [facility] 09-08-2024 13:10-0400 Heart rate 70 /min Dr. Huang Jay MD Work Phone: [facility] 09-08-2024 13:10-0400 Respiratory rate 16 /min Dr. Huang Jay MD Work Phone: [facility] 09-08-2024 13:10-0400 SaO2% (BldA) [Mass fraction] 99 % Dr. Huang Jay MD Work Phone: [facility] 09-08-2024 13:10-0400 Systolic blood pressure 108 mm[Hg] Dr. Huang Jay MD Work Phone: [facility] Encounters Encounter Date Encounter Type Care Provider Facility Start: 12-27-2024 ambulatory Huang Tadeo ty:[facility] Start: 12-14-2024 End: 12-14-[address] Coretta King MD -[facility] Work Phone: Start: 12-14-2024 End: 12-14-[address] Huang Jay MD Work Phone: -[facility] Start: 11-17-2024 ambulatory Huang Tadeo ty:[facility] Start: 11-17-2024 Non-patient / Non-visit Dr. Coretta arredondo MD -[facility] Start: 11-17-2024 End: 11-17-2024 Admission to same day surgery center Dr. Coretta King MD -Endoscopy Work Phone: Start: 11-17-2024 End: 11-17-[address] Huang Jay MD Work Phone: [facility] Work Phone: Start: 09-15-2024 End: 09-15-[address] Huang Jay MD Work Phone: [facility] Work Phone: Start: 09-15-2024 End: 09-15-[address] Huang Jay MD -[facility] Work Phone: Start: 09-15-2024 End: 09-15-2024 ambulatory Huang Jay Facility:[facility] Start: 09-13-2024 Encounter for genera l adult medical examination without abnormal findings [facility] Start: 09-08-2024 End: 09-08-[address] Huang Jay MD -[facility] Work Phone: Start: 09-08-2024 End: 09-08-[address] Huang Jay MD [facility] Start: 09-08-2024 End: 09-08-[address] Huang Jay MD Work Phone: [facility] Work Phone: Start: 09-08-2024 End: 09-08-2024 ambulatory [facility] Facility:[facility] Start: 04-09-2024 End: 04-09-2024 ambulatory No Primary Care Physician Facility[facility] Start: 04-09-2024 End: 04-09-2024 ambulatory [facility] Facility:[facility] Procedures Date Procedure Procedure Detail Performing Clinician Start: 11-17-[address] Tal Jay MD Work Phone: Start: 09-15-2024 Screening mammography Margareth Jay MD Work Phone: Plan of Treatment Date Care Activity Detail Author Start: 11-17-2024 Colonoscopy flx dx w/collj spec when pfrmd DIAGNOSTIC COLONOSCOPY [facility] Start: 11-17-2024 Patient discharge [facility] Start: 09-15-2024 MG Breast - bilatera l Screening [facility] Start: 09-08-2024 Patient referral [facility] Work Phone: Patient referral [facility] Work Phone: Payers Date Payer Category Payer Self-pay 2024 Unknown [id number] Unknown [id number] 2.16.8 [id number] Unknown [id number] 2.16.8 [id number] Unknown [id number] 2.16.8 [id number] Unknown [id number] 2.16.8 [id number] Unknown [id number] 2.16.8 [id number] Unknown [id number] 2.16.8 [id number] Unknown [id number] 2.16.8 [id number] Unknown [id number] 2.16.8 [id number] Unknown [id number] 2.16.8 [id number] Social History Date Type Detail Facility Start: 08-06-2024 End: 11-17-2024 Tobacco smoking status NHIS Current some day smoker [facility] Start: 09-13-2024 End: 09-21-2024 Sex Female (finding) [facility] Start: 1980 Sex Assigned At Female [facility] NEGATED: Highlighted row Not [facility] Goals Date Patient Goal Desired Activity /State Mental Status Date Assessment Result Facility 11-17-2024 Cognitive function Voice/Name;Touch/Mainki santana [facility] Work Phone: Clinical Notes 09-08-2024 to 11-17-2024 Note Date & Type Note Facility 11-17-2024 History and physi mia note Note Date/Time November 17, 2024 10:14am [facility] Medical Records Department [address] [place] [address] History & Physical Exam 11/17/24 0947 MR#: [id number] Acct: [id number] Name: KAYLEE GARRETT Rep #:[id number] : 1980 44 From: Coretta King MD PCP: Dr. Huang Jay MD Status:R [facility] Location: [place] [address] HPI - General General Date of Service: 11/17/24 HPI Narrative KAYLEE CHARLES, is a 44 F who presents for screening colonoscopy. Patient's had a colonoscopy and EGD about 20 years ago in [place]. Patient states her maternal grandfather had colon cancer in his 80s but no immediate relatives. Patient has bowel movements every other day denies any blood. Patient denies any chronic abdominal pain/nausea/vomiting. Patient does have some left upper quadrant abdominal pain was previously on pantoprazole due to reflux but has run out. Left upper quadrant pain did improve/resolve with the pantoprazole before she ran out. [facility] Medical History Alcohol use High cholesterol Smoker Leg cramps Cardiology follow-up encounter GERD (gastroesophageal reflux disease) Preventative health care Colon cancer screening Establishing care with new doctor, encounter for Abdominal pain Hypothyroidism Hypertension Home Medications ?Medication ?Instructions ?Recorded ?Last Taken ?Type olmesartan 20 1 tab PO QDAY #90 tabs 09/1011/16/24 Rx mg-hydrochlorothiazide 12.5 mg tablet levothyroxine 75 mcg tablet 75 mcg PO QDAY #90 tabs 11/17/24 Rx bromelains 500 mg tablet 500 mg PO QODAY 11/12/2403/03 History Allergy/AdvReac Type Severity Reaction Status Date / Time No Known Allergies Allergy Verified 11/17/24 09:14 Family History Father Diabetes Grandfather Colon cancer Surgical History History of colonoscopy History of unilateral salpingectomy H/O: hysterectomy Social History household members: spouse and children current occupational status: employed Smoking Status: Current some day smoker tobacco type: cigarettes alcohol intake: current alcohol intake frequency: holidays/special occasions only substance use type: does not use what type of physical activity do you participate in: walking seatbelt use: always do you feel safe at home: Yes Past Medical/Surgical History Planned Operation Planned Operative Procedure(s): COLONOSCOPY Previous Hospitalizations/Surgeries HX Hospitalizations: No Any Problems With Anesthesia: No You/Your Family Experience Fever (Hyperthermia) With Anes: No Cholinesterase deficiency: No Cardiovascular Hx Hypertension: Yes Respiratory Hx Sleep Apnea: No Hx Respiratory Tract Infection/Cold (presently): No Do You Snore Loudly (louder than talking or can be heard): No Do You Often Feel Tired/ Fatigued/ Sleepy Dring Daytime?: No Has Anyone Observed You Stop Breathing During Sleep?: No Result (for STOP score): Negative Smoking Status: Current some day smoker Neurological Does patient have nerve stimulator: No Reproduction : No Miscellaneous Recent Exposure to Contagious Disease: No Allergies No Known Allergies Allergy (Verified 11/17/24 09:14) Discharge Is Pt Admitted From a Penitentiary, or a Fpc: No Who Could Help: FAMILY After D/C, Where Do you Plan to Go: Return Home Vital Signs Vital Signs Vital Signs: 11/17/24 09:15 11/17/24 09:15 Temperature 97.0 F L Temperature Source Temporal Pulse Rate 59 L Respiratory Rate 18 Respiratory Pattern Normal Blood Pressure 104/61 Blood Pressure Mean 75 Blood Pressure Source Monitor Blood Pressure Position Semi-Fowlers Blood Pressure Location Left Arm Pulse Ox 100 Oxygen Delivery Method Room Air Weight Weight: 174 lb 2.643 oz Body Mass Index (BMI) 35.2 Physical Exam Const alert, oriented x3 and no apparent distress HEENT normocephalic and head/scalp atraumatic Resp normal respiratory effort Cardio regular rate GI soft to palpation and non-tender; Negative for non-distended Palpation: Negative for guarding Extremity no clubbing, cyanosis or edema Skin no rashes or lesions noted Neuro CN's II-XII intact bilaterally Psych mental status grossly normal Assessment & Plan Assessment/Plan (1) Colon cancer screening: (2) GERD (gastroesophageal reflux disease): PLAN: Plan Will refill patient's pantoprazole. Surgery Risks - Colonoscopy I discussed with the patient the risks of the procedure: Yes Risks Include but are not Limited To: Risks include but are not limited to: Bleeding, perforation requiring further surgery, inability to complete colonoscopy requiring barium enema. 11/17/24 1014 <Electronically signed by Coretta King MD> Cosigner Signature (if applicable): CC: Dr. Huang Jay MD; Dr. Coretta Kign MD~ Signed [facility] Work Phone: 1(321) 940-473306-11-2025 Consult note Author Dez Roca [facility] Note Date/Time November 17, 2024 9:14 am [facility] Medical Records Department [address] [place] [address] Pre-Anesthesia Evaluation 11/17/24 0914 MR#: [id number] Acct: [id number] Name: KAYLEE GARRETT Rep #:[id number] : 1980 44 From: Dez Roca MD PCP: Dr. Huang Jay MD Status:R EG SDC Y Race: H Location: [place] [address] ASA Classification* ASA Classification ASA Classification: 2 Assessment & Plan Anesthesia* Anesthesia Assessment Anesthesia Assessment: Discussed sedation and/or anesthesia options, risks, benefits, and alternatives with patient/parents/legal guardian/POA. Questions invited. The patient/parents/legal guardian/POA seems to understand and agrees to proceedwith anesthesia plan. Reviewed the physical assessment, medical history, allergy history and patient home medications list prior to surgery/procedure/anesthetic and documented any changes. Performed airway and anesthesia risk assessments. Anesthesia Type Anesthesia Type: MAC Anesthesia Focused Assessment* Airway Assessment Mouth opens: >3 cm Mallampati Score: II Labs Anesthesia Preop lab: CBC WBC 10.2 K/mm3 (4.4-11.0) 12/09/23 17:38 12/09/23 RBC 5.09 M/mm3 (4.2-5.4) 12/09/23 17:38 12/09/23 Hgb 15.1 g/dL (12.0-15.0) H 12/09/23 17:38 4 Hct 45.5 % (37-47) 12/09/23 17:38 12/09/23 Plt Count 450 K/mm3 (150-450) 12/09/23 17:38 12/09/23 CHEMISTRY Potassium 4.2 mmol/L (3.3-5.1) 09/08/24 13:40 09/08/24 Sodium 141 mmol/L (133-145) 09/08/24 13:40 09/08/24 BUN 18 mg/dL (4-19) 09/08/24 13:40 09/08/24 Creatinine 0.87 mg/dL (0.70-1.20) 09/08/24 13:40 09/08/24 Glucose 113 mg/dL (70-99) H 09/08/24 13:40 09/08/24 TSH 2.700 uIU/mL (0.358-3.740) 04/09/24 14:19 07/02 COAG Pre-Assessment Diagnosis/Proposed Procedure Planned Operative Procedure(s): COLONOSCOPY Anesthesia History Anesthesia History - drafter structural: Anesthesia History - drafter structural Hx Hospitalization No 11/12/24 13:09 Any Problems With Anesthesia No 11/12/24 13:09 Cholinesterase deficiency No 11/12/24 13:09 You/Your Family Experience No 11/12/24 13:09 fever (hyperthermia) with Relationship Recent Exposure to Contagious Disease Does patient have nerve No 11/12/24 13:09 stimulator Patient instructed to have device shut off --Does patient have Pacemaker or ICD? When Was Last Pacemaker Check QUESTION #4 FULL TEXT: You/Your Family Experience fever (hyperthermia) with Anesthesia Last Oral Intake Last Oral intake: Last Oral Intake NPO since Meds taken in AM with sips of water? 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 - drafter structural: PONV - drafter structural Female Yes 11/12/24 13:09 HX of Motion Sickness No 11/12/24 13:09 HX of N/V After Surgery No 11/12/24 13:09 Non-Smoker No 11/12/24 13:09 Duration of Surgery greater No 11/12/24 13:09 than 60 minutes Number of Risk Factors 1 11/12/24 13:09 PONV Score Low Risk 11/12/24 13:09 Height & Weight Height & Weight: Anesthesia: Height & Weight Height 4 ft 11 in 09/08/24 13:10 Respiratory Assessment Respiratory Assessment - drafter structural: Respiratory Tract Infection Hx - drafter structural Hx Respiratory Tract Infection No 11/12/24 13:09 STOP Sleep Apnea STOP Sleep Apnea - drafter structural: STOP Sleep Apnea - drafter structural Hx Hypertension Yes 11/12/24 13:09 Hx Sleep Apnea No 11/12/24 13:09 CPAP BIPAP Do you snore loudly (louder No 11/12/24 13:09 than talking or can be heard Do you often feel tired/ No 11/12/24 13:09 fatigued/ sleepy during daytime? Has anyone observed you stop No 11/12/24 13:09 breathing during sleep? STOP Results Negative 11/12/24 13:09 QUESTION #5 FULL TEXT : Do you snore loudly (louder than talking or can be heard through closed doors)? Tobacco Use History Tobacco Use History - drafter structural: Tobacco Use History - drafter structural Tobacco Use Smoking Status Current every day smoker 11/12/24 13:09 Hx Tobacco Use Yes 11/12/24 13:09 Years Smoking Packs Smoked per Day Smoking Cessation Date was within the last 15 years Hx Smoking Cessation Date Hx Smoking Cessation Counseling Hematologic Medial History Hematologic Hx - drafter structural: Hematologic Medical Hx - huc Hx of Blood Transfusion No 11/12/24 13:09 Hx of Transfusion in last 3 No 11/12/24 13:09 Months Date of Last Transfusion (if within last 3 months) Ever experience any problems No 11/12/24 13:09 with transfusion(s)? Specify any problems Hx of Preganancy in last 3 No 11/12/24 13:09 Months Nurse Filling Out Transfusion MGRIFFITH 11/12/24 13:09 & Questions: Date: 11/12/24 11/12/24 13:09 Time: 13:12 11/12/24 13:09 Patient unable to answer at this time (ie. confused, unrespo /Reproduction History /Reproductive History - drafter structural: /Reproductive Hx- drafter structural Hx Now No 11/12/24 13:09 Gestational Age (in weeks): EDC: Hx Hx Para Hx Section SAB No 11/12/24 13:09 Active Medications Active Medications: Current Medications Generic Name Dose Route Start Last Admin Trade Name Freq PRN Reason Stop Dose Admin Lactated Ringer's 1,000 mls @ 15 mls/hr 11/17/24 09:00 IV .Q48H DREW PFSH Medical History Alcohol use High cholesterol Smoker Leg cramps Cardiology follow-up encounter GERD (gastroesophageal reflux disease) Preventative health care Colon cancer screening Establishing care with new doctor, encounter for Abdominal pain Hypothyroidism Hypertension Home Medications ?Medication ?Instructions ?Recorded ?Last Taken ?Type olmesartan 20 1 tab PO QDAY #90 tabs 09/10 Unknown Rx mg-hydrochlorothiazide 12.5 mg tablet levothyroxine 75 mcg tablet 75 mcg PO QDAY #90 tabs Unknown Rx bromelains 500 mg tablet 500 mg PO QODAY 11/12/24 Unk nown History Allergy/AdvReac Type Severity Reaction Status Date / Time No Known Allergies Allergy Verified 11/17/24 09:14 Family History Father Diabetes Grandfather Colon cancer Surgical History History of colonoscopy History of unilateral salpingectomy H/O: hysterectomy Social History household members: spouse and children current occupational status: employed Smoking Status: Current some day smoker tobacco type: cigarettes alcohol intake: current alcohol intake frequency: holidays/special occasions only substance use type: does not use what type of physical activity do you participate in: walking seatbelt use: always do you feel safe at home: Yes Review of Systems (Anesthesia) ROS Narrative System reviewed and no additional complaints, except as documented. 11/17/24913 <Electronically signed by Dez Roca MD > Date _ Dez Roca MD Cosigner Signature: Date CC: ~ Signed [facility] Work Phone: 1(781) 182-490806-11-2025 Consult note [facility] Medical Records Department [address] [place] [address] Anesthesia Postop Eval I 11/17/24 1055 MR#: [id number] Acct: [id number] Name: KAYLEE GARRETT Rep #:[id number] : 1980 44 From: Archana marcano CRNA PCP: Dr. Huang aJy MD Status:R EG SD Y Race: H Location: [place] [address] Anesthesia: Postop Eval I Current Vital Signs Temperature: 97.5 F Pulse Rate: 80 Blood Pressure: 95/61 Respiratory Rate: 16 Pulse Ox: 96 Oxygen Delivery Method: Room Air Assessment Airway patent: Yes Spontaneous unlabored respirations: Yes Mental status: Asleep nausea: No Vomiting: No Anesthesia Complication: No Fluid Hydration Crystalloid volume administer (ml): 500 Total IV fluid infused: 500 Progress Note Anesthesia document: Postop Eval 1 completed: Yes 11/17/24 1056 ezraki DEPENDENCY CASE MANAGER> Date _ Archana Allie DEPENDENCY CASE MANAGER Cosigner Signature: Date CC: ~ Signed [facility]06-11-2025 Procedure note [facility] Medical Records Department [address] [place] [place] [address] Colonoscopy Report MR#: [id number] Acct: [id number] Name: KAYLEE GARRETT Rep #:[id number] : 1980 44 From: Coretta King MD PCP: Dr. Huang Jay MD Status:R [facility] Patient Name: Kaylee Charles Procedure Date: 11/17/2024 10:23 AM Date of : 1980 Age: 44 Procedure: Colonoscopy Indications: Screening for colorectal malignant neoplasm Providers: Coretta King MD Referring MD: Coretta King MD Medicines: Monitored Anesthesia Care Patient Profile: This is a 44 year old female. Last Colonoscopy: more than 10 years ago. Complications: No immediate complications. Procedure: Pre-Anesthesia Assessment: - Prior to the procedure, a History and Physical was performed, and patient medications and allergies were reviewed. The patient's tolerance of previous anesthesia was also reviewed. The risks and benefits of the procedure and the sedation options and risks were discussed with the patient. All questions were answered, and informed consent was obtained. Prior Anticoagulants: The patient has taken no anticoagulant or antiplatelet agents. ASA Grade Assessment: Per anesthesia. After reviewing the risks and benefits, the patient was deemed in satisfactory condition to undergo the procedure. After I obtained informed consent, the scope was passed under direct vision. Throughout the procedure, the patient's blood pressure, pulse, and oxygen saturations were monitored continuously. The Colonoscope was introduced through the anus and advanced to the cecum, identified by the ileocecal valve. The colonoscopy was performed without difficulty. The patient tolerated the procedure well. The quality of the bowel preparation was good. Scope In: 10:35:12 AM Scope Withdrawal Time 0 hours 6 minutes 6 seconds Scope Out: 10:49:18 AM Total Procedure Duration Time 0 hours 14 minutes 6 seconds Findings: The perianal and digital rectal examinations were normal. The entire examined colon appeared normal on direct and retroflexion views. Impression: - The entire examined colon is normal on direct and retroflexion views. - No specimens collected. Recommendation: - Discharge patient to home. - Resume previous diet. - Continue present medications. - Repeat colonoscopy in 10 years for screening purposes. Procedure Code(s): --- Professional --- G0121, PT, Colorectal cancer screening; colonoscopy on individual not meeting criteria for high risk Diagnosis Code(s): --- Professional --- Z12.11, Encounter for screening for malignant neoplasm of colon CPT copyright 2021 [employer]. All rights reserved. The codes documented in this report are preliminary and upon printing gray cloth tender review may be revised to meet current compliance requirements. MD Coretta Daniel MD 11/17/2024 10:53:39 AM This report has been signed electronically. Number of Addenda: 0 Note Initiated On: 11/17/2024 10:23 AM 11/17/24 1053 Date _ Coretta King MD Cosigner Signature: Date (if indicated) CC: Dr. Huang Jay MD; Dr. Coretta King MD ~ Date Dictated: 11/17/24 1023 Date Transcribed: Public Events Facilities Rental Manager: TR Signed [facility]06-11-2025 Procedure note [facility] Medical Records Department [address] [place] [address] Operative Report - CC Letter MR#: [id number] Acct: [id number] Name: KAYLEE GARRETT Rep #:[id number] : 1980 44 From: Coretta King MD PCP: Dr. Huang Jay MD Status:R EG [facility] 11/17/2024 Huang Jay MD [address] [place] [address] [place] [address] Re : Colonoscopy procedure for Kaylee Charles Dear Dr. Jay This procedure was performed on Sunday, November 17, 2024. My impressions and recommendations are as follows: Impressions : - The entire examined colon is normal on direct and retroflexion views. - No specimens collected. Recommendations : - Discharge patient to home. - Resume previous diet. - Continue present medications. - Repeat colonoscopy in 10 years for screening purposes. My findings are described in the full procedure note, which is enclosed. If I can be of further assistance, please feel free to contact me at Doctor phone number(s): , Work: . Sincerely, MD Coretta Daniel MD 11/17/2024 10:53:39 AM This report has been signed electronically. 11/17/24 1053 Date _ Coretta King MD Cosigner Signature: Date (if indicated) CC: Dr. Huang Jay MD; Dr. Coretta King MD ~ Date Dictated: 11/17/24 1023 Date Transcribed: Public Events Facilities Rental Manager: GUERO Signed [facility]06-11-2025 History and physical note [facility] Medical Records Department [address] [place] [address] History & Physical Exam 11/17/24 0947 MR#: [id number] Acct: [id number] Name: KAYLEE GARRETT Rep #:[id number] : 1980 44 From: Coretta King MD PCP: Dr. Huang Jay MD Status:R EG [facility] Location: [address] HPI - General General Date of Service: 11/17/24 HPI Narrative KAYLEE CHARLES, is a 44 F who presents for screening colonoscopy. Patient's had a colonoscopy and EGD about 20 years ago in [place]. Patient states her maternal grandfather had colon cancer in his 80s but no immediate relatives. Patient has bowel movements every other day denies any blood. Patient denies any chronic abdominal pain/nausea/vomiting. Patient does have some left upper quadrant abdominal pain was previously on pantoprazole due to reflux but has run out. Left upper quadrant pain did improve/resolve with the pantoprazole before she ran out. [facility] Medical History Alcohol use High cholesterol Smoker Leg cramps Cardiology follow-up encounter GERD (gastroesophageal reflux disease) [facility]ative health care Colon cancer screening Establishing care with new doctor, encounter for Abdominal pain Hypothyroidism Hypertension Home Medications ?Medication ?Instructions ?Recorded ?Last Taken ?Type olmesartan 20 1 tab PO QDAY #90 tabs 09/1011/16/24 Rx mg-hydrochlorothiazide 12.5 mg tablet levothyroxine 75 mcg tablet 75 mcg PO QDAY #90 tabs 11/17/24 Rx bromelains 500 mg tablet 500 mg PO QODAY 11/12/2403/03 History Allergy/AdvReac Type Severity Reaction Status Date / Time No Known Allergies Allergy Verified 11/17/24 09:14 Family History Father Diabetes Grandfather Colon cancer Surgical History History of colonoscopy History of unilateral salpingectomy H/O: hysterectomy Social History household members: spouse and children current occupational status: employed Smoking Status: Current some day smoker tobacco type: cigarettes alcohol intake: current alcohol intake frequency: holidays/special occasions only substance use type: does not use what type of physical activity do you participate in: walking seatbelt use: always do you feel safe at home: Yes Past Medical/Surgical History Planned Operation Planned Operative Procedure(s): COLONOSCOPY Previous Hospitalizations/Surgeries HX Hospitalizations: No Any Problems With Anesthesia: No You/Your Family Experience Fever (Hyperthermia) With Anes: No Cholinesterase deficiency: No Cardiovascular Hx Hypertension: Yes Respiratory Hx Sleep Apnea: No Hx Respiratory Tract Infection/Cold (presently): No Do You Snore Loudly (louder than talking or can be heard): No Do You Often Feel Tired/ Fatigued/ Sleepy Dring Daytime?: No Has Anyone Observed You Stop Breathing During Sleep?: No Result (for STOP score): Negative Smoking Status: Current some day smoker Neurological Does patient have nerve stimulator: No Reproduction : No Miscellaneous Recent Exposure to Contagious Disease: No Allergies No Known Allergies Allergy (Verified 11/17/24 09:14) Discharge Is Pt Admitted From a Penitentiary, or a Fpc: No Who Could Help: FAMILY After D/C, Where Do you Plan to Go: Return Home Vital Signs Vital Signs Vital Signs: 11/17/24 09:15 11/17/24 09:15 Temperature 97.0 F L Temperature Source Temporal Pulse Rate 59 L Respiratory Rate 18 Respiratory Pattern Normal Blood Pressure 104/61 Blood Pressure Mean 75 Blood Pressure Source Monitor Blood Pressure Position Semi-Fowlers Blood Pressure Location Left Arm Pulse Ox 100 Oxygen Delivery Method Room Air Weight Weight: 174 lb 2.643 oz Body Mass Index (BMI) 35.2 Physical Exam Const alert, oriented x3 and no apparent distress HEENT normocephalic and head/scalp atraumatic Resp normal respiratory effort Cardio regular rate GI soft to palpation and non-tender; Negative for non-distended Palpation: Negative for guarding Extremity no clubbing, cyanosis or edema Skin no rashes or lesions noted Neuro CN's II-XII intact bilaterally Psych mental status grossly normal Assessment & Plan Assessment/Plan (1) Colon cancer screening: (2) GERD (gastroesophageal reflux disease): PLAN: Plan Will refill patient's pantoprazole. Surgery Risks - Colonoscopy I discussed with the patient the risks of the procedure: Yes Risks Include but are not Limited To: Risks include but are not limited to: Bleeding, perforation requiring further surgery, inability to complete colonoscopy requiring barium enema. 11/17/24 1014 Cosigner Signature (if applicable): CC: Dr. Huang Jay MD; Dr. Coretta King MD~ Signed [facility]06-[facility]2025 [facility] Medical Records Department [address] [place] [address] History Physical Exam 11/17/24 0947 MR#: [id number] Acct: [id number] Name: KAYLEE GARRETT Rep #: [id number] : 1980 44 From: Coretta King MD PCP: Dr. Huang Jay MD Status:[facility] Location: [address] - General General Date of Service: 11/17/24 HPI Narrative KAYLEE CHARLES, is a 44 F who presents for screening colonoscopy. Patient's had a colonoscopy and EGD about 20 years ago in [place]. Patient states her maternal grandfather had colon cancer in his 80s but no immediate relatives. Patient has bowel movements every other day denies any blood. Patient denies any chronic abdominal pain/nausea/vomiting. Patient does have some left upper quadrant abdominal pain was previously on pantoprazole due to reflux but has run out. Left upper quadrant pain did improve/resolve with the pantoprazole before she ran out. [facility] Medical History Alcohol use High cholesterol Smoker Leg cramps Cardiology follow-up encounter GERD (gastroesophageal reflux disease) Preventative health care Colon cancer screening Establishing care with new doctor, encounter for Abdominal pain Hypothyroidism Hypertension Home Medications ???Medication ???Instructions ???Recorded ???Last Taken ???Type olmesartan 20 1 tab PO QDAY #90 tabs 09/10/24 Rx mg-hydrochlorothiazide 12.5 mg tablet levothyroxine 75 mcg tablet 75 mcg PO QDAY #90 tabs 10/11/24 0 11/17/24 Rx bromelains 500 mg tablet 500 mg PO QODAY 11/12/24 11/15/24 History Allergy/AdvReac Type Severity Reaction Status Date / Time No Known Allergies Allergy Verified 11/17/24 09:14 Family History Father Diabetes Grandfather Colon cancer Surgical History History of colonoscopy History of unilateral salpingectomy H/O: hysterectomy Social History household members: spouse and children current occupational status: employed Smoking Status: Current some day smoker tobacco type: cigarettes alcohol intake: current alcohol intake frequency: holidays/special occasions only substance use type: does not use what type of physical activity do you participate in: walking seatbelt use: always do you feel safe at home: Yes Past Medical/Surgical History Planned Operation Planned Operative Procedure(s): COLONOSCOPY Previous Hospitalizations/Surgeries HX Hospitalizations: No Any Problems With Anesthesia: No You/Your Family Experience Fever (Hyperthermia) With Anes: No Cholinesterase deficiency: No Cardiovascular Hx Hypertension: Yes Respiratory Hx Sleep Apnea: No Hx Respiratory Tract Infection/Cold (presently): No Do You Snore Loudly (louder than talking or can be heard): No Do You Often Feel Tired/ Fatigued/ Sleepy Dring Daytime?: No Has Anyone Observed You Stop Breathing During Sleep?: No Result (for STOP score): Negative Smoking Status: Current some day smoker Neurological Does patient have nerve stimulator: No Reproduction : No Miscellaneous Recent Exposure to Contagious Disease: No Allergies No Known Allergies Allergy (Verified 11/17/24 09:14) Discharge Is Pt Admitted From a Penitentiary, or a Fpc: No Who Could Help: FAMILY After D/C, Where Do you Plan to Go: Return Home Vital Signs Vital Signs Vital Signs: 11/17/24 09:15 11/17/24 09:15 Temperature 97.0 F L Temperature Source Temporal Pulse Rate 59 L Respiratory Rate 18 Respiratory Pattern Normal Blood Pressure 104/61 Blood Pressure Mean 75 Blood Pressure Source Monitor Blood Pressure Position Semi-Fowlers Blood Pressure Location Left Arm Pulse Ox 100 Oxygen Delivery Method Room Air Weight Weight: 174 lb 2.643 oz Body Mass Index (BMI) 35.2 Physical Exam Const alert, oriented x3 and no apparent distress HEENT normocephalic and head/scalp atraumatic Resp normal respiratory effort Cardio regular rate GI soft to palpation and non-tender; Negative for non-distended Palpation: Negative for guarding Extremity no clubbing, cyanosis or edema Skin no rashes or lesions noted Neuro CN's II-XII intact bilaterally Psych mental status grossly normal Assessment Plan Assessment/Plan (1) Colon cancer screening: (2) GERD (gastroesophageal reflux disease): PLAN: Plan Will refill patient's pantoprazole. Surgery Risks - Colonoscopy I discussed with the patient the risks of the procedure: Yes Risks Include but are not Limited To: Risks include but are not limited to: Bleeding, perforation requiring further s (more content not included)...[facility] Consult note [facility] Medical Records Department [address] [place] [address] Pre-Anesthesia Evaluation 11/17/24 0914 MR#: [id number] Acct: [id number] Name: KAYLEE GARRETT Rep #:[id number] : 1980 44 From: Dez Roca MD PCP: Dr. Huang Jay MD Status:R [facility] Y Race: H Location: [place] [address] ASA Classification* ASA Classification ASA Classification: 2 Assessment & Plan Anesthesia* Anesthesia Assessment Anesthesia Assessment: Discussed sedation and/or anesthesia options, risks, benefits, and alternatives with patient/parents/legal guardian/POA. Questions invited. The patient/parents/legal guardian/POA seems to understand and agrees to proceedwith anesthesia plan. Reviewed the physical assessment, medical history, allergy history and patient home medications list prior to surgery/procedure/anesthetic and documented any changes. Performed airway and anesthesia risk assessments. Anesthesia Type Anesthesia Type: MAC Anesthesia Focused Assessment* Airway Assessment Mouth opens: >3 cm Mallampati Score: II Labs Anesthesia Preop lab: CBC WBC 10.2 K/mm3 (4.4-11.0) 12/09/23 17:38 12/09/23 RBC 5.09 M/mm3 (4.2-5.4) 12/09/23 17:38 12/09/23 Hgb 15.1 g/dL (12.0-15.0) H 12/09/23 17:38 4 Hct 45.5 % (37-47) 12/09/23 17:38 12/09/23 Plt Count 450 K/mm3 (150-450) 12/09/23 17:38 12/09/23 CHEMISTRY Potassium 4.2 mmol/L (3.3-5.1) 09/08/24 13:40 09/08/24 Sodium 141 mmol/L (133-145) 09/08/24 13:40 09/08/24 BUN 18 mg/dL (4-19) 09/08/24 13:40 09/08/24 Creatinine 0.87 mg/dL (0.70-1.20) 09/08/24 13:40 09/08/24 Glucose 113 mg/dL (70-99) H 09/08/24 13:40 09/08/24 TSH 2.700 uIU/mL (0.358-3.740) 04/09/24 14:19 11/07/02 COAG Pre-Assessment Diagnosis/Proposed Procedure Planned Operative Procedure(s): COLONOSCOPY Anesthesia History Anesthesia History - drafter structural: Anesthesia History - drafter structural Hx Hospitalization No 11/12/24 13:09 Any Problems With Anesthesia No 11/12/24 13:09 Cholinesterase deficiency No 11/12/24 13:09 You/Your Family Experience No 11/12/24 13:09 fever (hyperthermia) with Relationship Recent Exposure to Contagious Disease Does patient have nerve No 11/12/24 13:09 stimulator Patient instructed to have device shut off --Does patient have Pacemaker or ICD? When Was Last Pacemaker Check QUESTION #4 FULL TEXT: You/Your Family Experience fever (hyperthermia) with Anesthesia Last Oral Intake Last Oral intake: Last Oral Intake NPO since Meds taken in AM with sips of water? 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 - drafter structural: PONV - drafter structural Female Yes 11/12/24 13:09 HX of Motion Sickness No 11/12/24 13:09 HX of N/V After Surgery No 11/12/24 13:09 Non-Smoker No 11/12/24 13:09 Duration of Surgery greater No 11/12/24 13:09 than 60 minutes Number of Risk Factors 1 11/12/24 13:09 PONV Score Low Risk 11/12/24 13:09 Height & Weight Height & Weight: Anesthesia: Height & Weight Height 4 ft 11 in 09/08/24 13:10 Respiratory Assessment Respiratory Assessment - drafter structural: Respiratory Tract Infection Hx - drafter structural Hx Respiratory Tract Infection No 11/12/24 13:09 STOP Sleep Apnea STOP Sleep Apnea - drafter structural: STOP Sleep Apnea - drafter structural Hx Hypertension Yes 11/12/24 13:09 Hx Sleep Apnea No 11/12/24 13:09 CPAP BIPAP Do you snore loudly (louder No 11/12/24 13:09 than talking or can be heard Do you often feel tired/ No 11/12/24 13:09 fatigued/ sleepy during daytime? Has anyone observed you stop No 11/12/24 13:09 breathing during sleep? STOP Results Negative 11/12/24 13:09 QUESTION #5 FULL TEXT : Do you snore loudly (louder than talking or can be heard through closeddoors)? Tobacco Use History Tobacco Use History - drafter structural: Tobacco Use History - drafter structural Tobacco Use Smoking Status Current every day smoker 11/12/24 13:09 Hx Tobacco Use Yes 11/12/24 13:09 Years Smoking Packs Smoked per Day Smoking Cessation Date was within the last 15 years Hx Smoking Cessation Date Hx Smoking Cessation Counseling Hematologic Medial History Hematologic Hx - drafter structural: Hematologic Medical Hx - huc Hx of Blood Transfusion No 11/12/24 13:09 Hx of Transfusion in last 3 No 11/12/24 13:09 Months Date of Last Transfusion (if within last 3 months) Ever experience any problems No 11/12/24 13:09 with transfusion(s)? Specify any problems Hx of Preganancy in last 3 No 11/12/24 13:09 Months Nurse Filling Out Transfusion MGRIFFITH 11/12/24 13:09 & Questions: Date: 11/12/24 11/12/24 13:09 Time: 13:12 11/12/24 13:09 Patient unable to answer at this time (ie. confused, unrespo /Reproduction History /Reproductive History - drafter structural: /Reproductive Hx- drafter structural Hx Now No 11/12/24 13:09 Gestational Age (in weeks): EDC: Hx Hx Para Hx Section SAB No 11/12/24 13:09 Active Medications Active Medications: Current Medications Generic Name Dose Route Start Last Admin Trade Name Freq PRN Reason Stop Dose Admin Lactated Ringer's 1,000 mls @ 15 mls/hr 11/17/24 09:00 IV .Q48H DREW PFSH Medical History Alcohol use High cholesterol Smoker Leg cramps Cardiology follow-up encounter GERD (gastroesophageal reflux disease) Preventative health care Colon cancer screening Establishing care with new doctor, encounter for Abdominal pain Hypothyroidism Hypertension Home Medications ?Medication ?Instructions ?Recorded ?Last Taken ?Type olmesartan 20 1 tab PO QDAY #90 tabs 09/10 Unknown Rx mg-hydrochlorothiazide 12.5 mg tablet levothyroxine 75 mcg tablet 75 mcg PO QDAY #90 tabs Unknown Rx bromelains 500 mg tablet 500 mg PO QODAY 11/12/24 Unk nown History Allergy/AdvReac Type Severity Reaction Status Date / Time No Known Allergies Allergy Verified 11/17/24 09:14 Family History Father Diabetes Grandfather Colon cancer Surgical History History of colonoscopy History of unilateral salpingectomy H/O: hysterectomy Social History household members: spouse and children current occupational status: employed Smoking Status: Current some day smoker tobacco type: cigarettes alcohol intake: current alcohol intake frequency: holidays/special occasions only substance use type: does not use what type of physical activity do you participate in: walking seatbelt use: always do you feel safe at home: Yes Review of Systems (Anesthesia) ROS Narrative System reviewed and no additional complaints, except as documented. 11/17/24913 > Date _ Dez Avalos Signature: Date CC: ~ Signed [facility]06-11-2025 Hospital Discharge instructions Additional Instructions Okay to take Pepcid (famotidine-ok to get generic) 20 mg p.o. daily or twice daily [id number] for the first 2 to 3 days to help with the left upper quadrant pain as it takes a couple days for the pantoprazole to work well.[facility] Work Phone: 1(500) 600-217704-02-2025 Evaluation note* Diagnosis Onset Date Resolution Status Admit Date Colon cancer screening acute Ap [facility] 2024 1:02pm GERD (gastroesophageal reflu x disease) acute September 08, 2024 1:02pm Prevent[facility] health care acute September 08, 2024 1:02pm Hypertension chronic September 08, 2 025 1:02pm Hypothyroidism chronic September 08, 2024 1:02pm [facility] Work Phone: 1(418) 393-948204-02-2025 Evaluation note* Diagnosis Onset Date Resolution Status Admit Date Colon cancer screening acute Ap [facility] 2024 1:02pm GERD (gastroesophageal reflu x disease) acute September 08, 2024 1:02pm Preventative health care acute September 08, 2024 1:02pm Hypertension chronic September 08, 2 025 1:02pm Hypothyroidism chronic September 08, 2024 1:02pm Colon cancer screening acute [facility] 2024 8:46am GERD (gastroesophageal reflu x disease) acute November 17, 2024 8:46am [facility] Work Phone: Consult note Author Archana Kelley [facility] Note Date/Time November 17, 2024 10:5 6am [facility] Medical Records Department [address] [place] [address] Anesthesia Postop Eval I 11/17/24 1055 MR#: [id number] Acct: [id number] Name: KAYLEE GARRETT Rep #:[id number] : 1980 44 From: Archana marcano CRNA PCP: Dr. Huang Jay MD Status:R [facility] Y Race: H Location: [place] [address] Anesthesia: Postop Eval I Current Vital Signs Temperature: 97.5 F Pulse Rate: 80 Blood Pressure: 95/61 Respiratory Rate: 16 Pulse Ox: 96 Oxygen Delivery Method: Room Air Assessment Airway patent: Yes Spontaneous unlabored respirations: Yes Mental status: Asleep nausea: No Vomiting: No Anesthesia Complication: No Fluid Hydration Crystalloid volume administer (ml): 500 Total IV fluid infused: 500 Progress Note Anesthesia document: Postop Eval 1 completed: Yes 11/17/24 1056 <Electronically signed by Archana golden CRNA> Date _ Archana Kelley CRNA Cosigner Signature: Date CC: ~ Signed [facility] Work Phone: Chief Complaint and Reason for Visit Chief Complaint Admit Date 5 M September 08, 2024 1:02 pm SCREENING September 15, 2024 1:26 pm Reason for Visit Admit Date Colon cancer screening September 08, 2024 1 :02pm GERD (gastroesophageal reflux disease) [facility] 2024 1:02pm Preventative health care September 08, 2024 1:02pm Hypertension September 08, 2024 1:02 pm Hypothyroidism September 08, 2024 1:02 pm Chief Complaint Admit Date 5 M September 08, 2024 1:02 pm Reason for Visit Admit Date Colon cancer screening September 08, 2024 1 :02pm GERD (gastroesophageal reflux disease) [facility] 2024 1:02pm Preventative health care September 08, 2024 1:02pm Hypertension September 08, 2024 1:02 pm Hypothyroidism September 08, 2024 1:02 pm Colon cancer screening November 17, 2024 8 :46am GERD (gastroesophageal reflux disease) J count includes the [facility] 2024 8:46am Chief Complaint Admit Date 5 M September 08, 2024 1:02 pm SCREENING September 15, 2024 1:26 pm DISCUSS EGD December 14, 2024 1:44p m Family History No Family History Records Found Relationship Condition Age at Onset Recorded Date/T cory father Diabetes mellitus Unknown grandfather Malignant neoplasm of colon Unknown Advance Directives No Advanced Directives Records Found Advance Directive Response Recorded Date/ Time Do you have a Healthcare Power of [employer]? No November 12, 2024 1:09pm Summary Purpose Additional Source Comments Care Teams (unrecognized sec tion and content) Team Status: Active Member Role Status Dates Dr. Huang Jay MD Primary Care Provider Active Team Status: Inactive Member Role Status Dates Dr. Huang Jay MD Primary Care Provider Active Start: September 08, 2024 End: September 08, 2024 Dr. Huang Jay MD Attending Provider Active Start: September 08, 2024 End: September 08, 2024 Dr. Huang Jay MD Referring Provider Active Start: September 08, 2024 End: September 08, 2024 Team Status: Inactive Member Role Status Dates Dr. Huang Jay MD Primary Care Provider Active Start: September 15, 2024 End: September 15, 2024 Dr. Huang Jay MD Attending Provider Active Start: September 15, 2024 End: September 15, 2024 Dr. Huang Jay MD Referring Provider Active Start: September 15, 2024 End: September 15, 2024 Team Status: Inactive Member Role Status Dates Dr. Huang Jay MD Primary Care Provider Active Start: November 17, 2024 End: November 17, 2024 Dr. Huang Jay MD Referring Provider Active Start: November 17, 2024 End: November 17, 2024 Dr. Coretta King MD Attending Provider Active Start: November 17, 2024 End: November 17, 2024 Team Status: Active Member Role Status Dates Dr. Huang Jay MD Primary Care Provider Active Start: November 17, 2024 Dr. Huang Jay MD Referring Provider Active Start: November 17, 2024 Dr. Coretta King MD Attending Provider Active Start: November 17, 2024 Dr. Coretta King MD Other Provider Active S tart: November 17, 2024 Team Status: Active Member Role/Relationship Status Dates Dr. Huang Jay MD Primary Care Provider Active Team Status: Inactive Member Role/Relationship Status Dates Dr. Huang Jay MD Primary Care Provider Active Start: September 08, 2024 End: September 08, 2024 Dr. Huang Jay MD Attending Provider Active Start: September 08, 2024 End: September 08, 2024 Dr. Huang Jay MD Referring Provider Active Start: September 08, 2024 End: September 08, 2024 Team Status: Inactive Member Role/Relationship Status Dates Dr. Huang Jay MD Primary Care Provider Active Start: September 08, 2024 End: September 08, 2024 Dr. Huang Jay MD Attending Provider Active Start: September 08, 2024 End: September 08, 2024 Dr. Huang Jay MD Referring Provider Active Start: September 08, 2024 End: September 08, 2024 Team Status: Inactive Member Role/Relationship Status Dates Dr. Huang Jay MD Primary Care Provider Active Start: September 15, 2024 End: September 15, 2024 Dr. Huang Jay MD Attending Provider Active Start: September 15, 2024 End: September 15, 2024 Dr. Huang Jay MD Referring Provider Active Start: September 15, 2024 End: September 15, 2024 Team Status: Inactive Member Role/Relationship Status Dates Dr. Huang Jay MD Primary Care Provider Active Start: November 17, 2024 End: November 17, 2024 Dr. Huang Jay MD Referring Provider Active Start: November 17, 2024 End: November 17, 2024 Dr. Coretta King MD Attending Provider Active Start: November 17, 2024 End: November 17, 2024 Team Status: Active Member Role/Relationship Status Dates Dr. Huang Jay MD Primary Care Provider Active Start: November 17, 2024 Dr. Huang Jay MD Referring Provider Active Start: November 17, 2024 Dr. Coretta King MD Attending Provider Active Start: November 17, 2024 Dr. Coretta King MD Other Provider Active S tart: November 17, 2024 Team Status: Inactive Member Role/Relationship Status Dates Dr. Huang Jay MD Primary Care Provider Active Start: December 14, 2024 End: December 14, 2024 Dr. Huang Jay MD Referring Provider Active Start: December 14, 2024 End: December 14, 2024 Dr. Coretta King MD Attending Provider Active Start: December 14, 2024 End: December 14, 2024 Goals (unrecognized section and content) Goals may be documented in a n alternate sectionGoals may be documented in an alternate section INFORMATION SOURCE (unrecogn ized section and content) DATE CREATED AUTHOR 12/26/2024 [facility] FOR RECORDS PERTAINING TO PATIENTS WHO ARE OR HAVE BEEN ENROLLED IN A CHEMICAL DEPENDENCY/SUBSTANCEABUSE PROGRAM, SOME INFORMATION MAY BE OMITTED. This clinical summary was aggregated from multiple sources. Caution should be exercised in using it in the provision of clinical care. This summary normalizes information from multiple sources, and as a consequence, information in this document may materially change the coding, format and clinical context of patient data. In addition, data may be omitted in some cases. CLINICAL DECISIONS SHOULD BE BASED ON THE PRIMARY CLINICAL RECORDS. [employer] provides no warranty or guarantee of the accuracy or completeness of information in this document.
[2024-12-27] MEDS: Lactated Ringers 1,000 ML 15 ML IV (07:49)
--- NOTE | 2024-12-27 07:49 | HP.PCM_ITS ---
History and Physical Date of Admission: 12/27/24 Date of Service: 12/14/24 MR#: [id number] Acct: [id number] Name: SARANYA GARRETT Rep #: [id number] : 1980 Provider: Dr. Coretta King MD Age/Sex: 44/F Location: [facility] Status: Signed Intake Vital Signs 09/08/2512:10 11/17/2508:15 12/14/2512:59 Height 4 ft 11 in 4 ft 11 in 4 ft 11 in Weight: 177 lb BMI 35.7 BP 111/68 Blood Pressure Location Rt brachial Position Sitting Respiration 17 Pulse 60 Pulse Source Monitor Temp 97.5 F L Temp Source Temporal Pulse Oximetry (%) 94 Oxygen Delivery Method room air Intake Visit Reasons: DISCUSS EGD Chief Complaint: EGD Is patient in pain?: No Allergies No Known Allergies Allergy (Verified 12/14/24 14:00) Medications ?Medication ?Instructions ?Recorded ?Confirmed ?Type olmesartan 20 1 tab PO QDAY #90 tabs 09/10/24 12/14/24 Rx mg-hydrochlorothiazide 12.5 mg tablet levothyroxine 75 mcg tablet 75 mcg PO QDAY #90 tabs 10/11/24 5 Rx PFSH Medical History Alcohol use High cholesterol Smoker Leg cramps Cardiology follow-up encounter GERD (gastroesophageal reflux disease) Preventative health care Colon cancer screening Establishing care with new doctor, encounter for Abdominal pain Hypothyroidism Hypertension Surgical History (Updated 11/17/24 @ 11:05 by Princess You) History of appendectomy History of colonoscopy History of unilateral salpingectomy H/O: hysterectomy Family History Father DiabetesGrandfather Colon cancer Social History household members: spouse and children current occupational status: employed Smoking Status: Current some day smoker tobacco type: cigarettes alcohol intake: current alcohol intake frequency: holidays/special occasions only substance use type: does not use what type of physical activity do you participate in: walking seatbelt use: always do you feel safe at home: Yes HPI HPI HPI: 44-year-old female presents to discuss EGD. Patient does states she does get reflux with spicy food initially was on pantoprazole 1 month prior to the colonoscopy and states that her symptoms improved. Patient does have symptoms of reflux or bloating about 2-3 times a week. Currently patient is not taking pantoprazole regularly. Patient does have a history of H. pylori previously. ROS General General: No weight change, appetite, fatigue, colon cancer or breast cancer HEENT HEENT: No difficulty swallowing, eye injury, eye surgery, swollen glands or hoarseness Endo Endocrine: Yes thyroid disease; No diabetes mellitus, thyroid cancer, Hair loss, heat intolerance or cold into lerance Skin Skin: No rash or changing moles Musc Musculoskeletal: No back problems, arthritis, rheumatoid arthritis, gout or joint pain Cardio Cardiovascular: Yes high blood pressure; No murmur, pacemaker, heart disease, atrial fibrillation, heart attack, heart stent, palpitations, shortness of breath with exertion or chest pain Psych Psychiatric: No depression, anxiety or hearing voices Resp Respiratory: No shortness of breath, No sleep apnea, No cough, No COPD, No as thma, No emphysema and No wheezing Gastro Gastrointestinal: Yes abdominal pain, No nausea or vomiting, No diarrhea, No constipation, No blood in stool, Yes acid reflux, No hemorrhoids, No ulcers, No gallbladder problem and No black,tarry stools Derek Hematologic: No blood thinners, No blood disorders, No bleeding, No anemia and No blood clots Neuro Neurologic: No numbness and No tingling Exam Const General: cooperative, healthy appearing, comfortable and no acute distress [facility] Head: normocephalic and atraumatic Neck Neck: supple Resp Effort & Inspection: normal respiratory effort Cardio Rate: regular rate GI Inspection: non-distended Palpation: soft and nontender Skin General: no rashes or lesions noted Neuro General: CN's II-XI intact bilaterally Extrem General: normal to inspection Psych Mental Status: mental status grossly normal Attitude: cooperative Assessment and Plan Assessment and Plan (1) GERD (gastroesophageal reflux disease): Status: Acute (2) Bloating: Status: Acute Orders: Orders EGD 12/27/24 Plan Discussed with patient doing EGD to check and also check a biopsy during that time due to history of H. pylori. Would recommend patient take pantoprazole for about 2 weeks to see if her symptoms improve. Patient does have a prescription at home. Patient is agreeable with plan. I have discussed the above with the patient. I have offered the patient esophagogastroduodenoscopy for evaluation. I have explained the risks/benefits of the procedure and described the procedure. I have discussed the risks with the patient, including but not limited to: infection, bleeding, perforation of the GI tract requiring emergenc y surgery, inability to complete the procedure, injury to any internal organs, complications of anesthesia, etc. - the patient understands and agrees to proceed. I have answered all the patient's questions to the patient's satisfaction and the patient has no further questions. Coretta King M.D. Pager: [phone] [facility] [address] [place] [address] [place] [address] Office: [phone] Coding Level of Care Code Off vis,est,level 3 Diagnoses GERD (gastroesophageal reflux disease) K21.9 Bloating R14.0 12/15/24 1521 <Electronically signed by Coretta King MD> Date Coretta King MD
--- NOTE | 2024-12-27 07:58 | PCM.PRE.AN2 ---
ASA Classification* ASA Classification ASA Classification: 2 Assessment & Plan Anesthesia* Anesthesia Assessment Anesthesia Assessment: Discussed sedation and/or anesthesia options, risks, benefits, and alternatives with patient/parents/legal guardian/POA. Questions invited. The patient/parents/legal guardian/POA seems to understand and agrees to proceed with anesthesia plan. Reviewed the physical assessment, medical history, allergy history and patient home medications list prior to surgery/procedure/anesthetic and documented any changes. Performed airway and anesthesia risk assessments. Anesthesia Type Anesthesia Type: MAC History Source History Obtained from:: Patient and Chart Anesthesia Focused Assessment* Temperature: 97.5 F Pulse Rate: 77 Blood Pressure: 127/69 Respiratory Rate: 16 Pulse Ox: 98 Oxygen Delivery Method: Room Air Airway Assessment Mouth opens: >3 cm Mallampati Score: I Teeth Condition: Intact Neck Range of motion (ROM): Full ROM Labs Anesthesia Preop lab: CBC WBC 10.2 K/mm3 (4.4-11.0) 12/09/23 17:38 12/09/23 RBC 5.09 M/mm3 (4.2-5.4) 12/09/23 17:38 12/09/23 Hgb 15.1 g/dL (12.0-15.0) H 12/09/23 17:38 12/09/23 Hct 45.5 % (37-47) 12/09/23 17:38 12/09/23 Plt Count 450 K/mm3 (150-450) 12/09/23 17:38 12/09/23 CHEMISTRY Potassium 4.2 mmol/L (3.3-5.1) 09/08/24 13:40 09/08/24 Sodium 141 mmol/L (133-145) 09/08/24 13:40 09/08/24 BUN 18 mg/dL (4-19) 09/08/24 13:40 09/08/24 Creatinine 0.87 mg/dL (0.70-1.20) 09/08/24 13:40 09/08/24 Glucose 113 mg/dL (70-99) H 09/08/24 13:40 09/08/24 TSH 2.700 uIU/mL (0.358-3.740) 04/09/24 14:19 04/09/24 COAG Pre-Assessment Diagnosis/Proposed Procedure Planned Operative Procedure(s): EGD Anesthesia History 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 When Was Last Pacemaker Check QUESTION #4 FULL TEXT: You/Your Family Experience fever (hyperthermia) with Anesthesia Last Oral Intake Last Oral intake: Last Oral Intake NPO since 22:00 12/27/24 07:49 Meds taken in AM with sips of Yes 12/27/24 07:49 water? Meds patient instructed to levothyroxine 12/27/24 07:49 take am of surgery Any additional information?: Yes Meds taken in AM with sips of water?: Yes PONV PONV - audit clerk: PONV - audit clerk Female Yes 12/24/24 12:07 HX of Motion Sickness No 12/24/24 12:07 HX of N/V After Surgery No 12/24/24 12:07 Non-Smoker No 12/24/24 12:07 Duration of Surgery greater No 12/24/24 12:07 than 60 minutes Number of Risk Factors 1 12/24/24 12:07 PONV Score Low Risk 12/24/24 12:07 Height & Weight Height & Weight: Anesthesia: Height & Weight Height 4 ft 11 in 12/27/24 07:49 Weight: 83.8 kg 12/27/24 07:49 Body Mass Index (BMI) 37.3 12/27/24 07:49 Respiratory Assessment Respiratory Assessment - audit clerk: Respiratory Tract Infection Hx - audit clerk Hx Respiratory Tract Infection No 12/24/24 12:07 STOP Sleep Apnea STOP Sleep Apnea - audit clerk: STOP Sleep Apnea - audit clerk Hx Hypertension Yes: CONTROLLED WITH MED 12/24/24 12:07 Hx Sleep Apnea No 12/24/24 12:07 CPAP BIPAP Do you snore loudly (louder Yes 12/24/24 12:07 than talking or can be heard Do you often feel tired/ Yes 12/24/24 12:07 fatigued/ sleepy during daytime? Has anyone observed you stop No 12/24/24 12:07 breathing during sleep? STOP Results Positive 12/24/24 12:07 QUESTION #5 FULL TEXT : Do you snore loudly (louder than talking or can be heard through closed doors)? 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 Specify any problems Hx of Preganancy in last 3 No 12/24/24 12:07 Months Nurse Filling Out Transfusion DSCHRIBER 12/24/24 12:07 & Questions: Date: 12/24/24 12/24/24 12:07 Time: 12:09 12/24/24 12:07 Patient unable to answer at this time (ie. confused, unrespo /Reproduction History /Reproductive History - audit clerk: /Reproductive Hx- audit clerk Hx Now No 12/24/24 12:07 Gestational Age (in weeks): EDC: Hx Hx Para Hx Section SAB No 12/24/24 12:07 Active Medications Active Medications: Current Medications Generic Name Dose Route Start Last Admin Trade Name Freq PRN Reason Stop Dose Admin Lactated Ringer's 1,000 mls @ 15 mls/hr 12/27/24 07:30 12/27/24 07:49 IV 15 mls/hr .Q48H DREW Administration PFSH Medical History Wears glasses Alcohol use High cholesterol Low iron Restless legs History of IBS Gastric reflux Smoker Leg cramps Cardiology follow-up encounter Hypothyroidism Hypertension Home Medications ?Medication ?Instructions ?Recorded ?Last Taken ?Type olmesartan 20 1 tab PO QDAY #90 tabs 09/10/24 11/16/24 Rx mg-hydrochlorothiazide 12.5 mg tablet levothyroxine 75 mcg tablet 75 mcg PO QDAY #90 tabs 10/11/24 12/27/24 Rx pantoprazole 40 mg tablet,delayed 40 mg PO DAILY 12/24/24 Unknown History release Allergy/AdvReac Type Severity Reaction Status Date / Time No Known Allergies Allergy Verified 12/27/24 07:42 Family History Father Diabetes Grandfather Colon cancer Surgical History History of appendectomy History of colonoscopy History of unilateral salpingectomy H/O: hysterectomy Social History household members: spouse and children current occupational status: employed Smoking Status: Current some day smoker tobacco type: cigarettes alcohol intake: current alcohol intake frequency: holidays/special occasions only substance use type: does not use what type of physical activity do you participate in: walking seatbelt use: always do you feel safe at home: Yes Review of Systems (Anesthesia) ROS Narrative System reviewed and no additional complaints, except as documented.
--- NOTE | 2024-12-27 08:30 | EGD_PTH ---
PATIENT: SARANYA GARRETT LOC: EN U#:[id number] AGE/SX: 44/F ROOM: RE12/27/[address]: Dr. Coretta King MD : 1980 BED: DIS: 12/27/2024 SPEC #: [id number] RECD: 12/27/24 10:01 STATUS: DELMI REEmmy #: [id number] YENY: 12/27/24 08:[address]: Coretta King DEPT: SURGICAL PATHOLOGY RECD BY: Bairon Hernandez ENTERED: 12/27/24 14:29 SP TYPE: EGD BIOPSY OT DR: Dr. Huang Jay MD Tissues: A - Gastric mucous membrane B - Gastric mucous membrane C - Esophagus, NOS D - Esophagus, NOS Procedures: Immunohistochemical Stains Surgery Specimen Level IV HEADER OPERATION: EGD with biopsies and polypectomy PRE-OP DIAGNOSIS: GERD, bloating TISSUE SUBMITTED: A- Antrum biopsy, B- Gastric body polyp, C- GE junction biopsy, D- Upper esophagus biopsy MICROSCOPIC DIAGNOSIS A. Gastric antrum, biopsy: - Chronic gastritis with focal mild activity. - IHC negative for H.pylori organisms. B. Gastric body, polyp, biopsy: - Polypoid foveolar hyperplasia. - Active chronic gastritis. - IHC negative for H.pylori organisms. C. Esophagus, GE junction, biopsy: - Benign squamous mucosa. - Columnar mucosa negative for goblet cell metaplasia. D. Upper esophagus, biopsy: - Benign squamous mucosa negative for eosinophils. MICROSCOPIC DESCRIPTION Slides are reviewed. All matched controls reacted appropriately. These tests were developed and their performance characteristics determined by [facility]. They may not have been cleared or approved by the U.S. Food and Drug Administration. The FDA has determined that such clearance or approval is not necessary. The above immunohistochemical/dualISH markers are viewed by the Pathologist. GROSS DESCRIPTION A. Received in fixative is one container labeled with the patient's name and designated Antrum biopsy. The specimen consists of two irregular fragments of light jones soft tissue that in aggregate measure <0.1 and 0.4 cm. The specimen is totally submitted in one cassette. B. Received in fixative is one container labeled with the patient's name and designated Gastric body polyp. The specimen consists of multiple irregular fragments of light jones soft tissue that in aggregate measure 0.2 to 0.4 cm. The specimen is totally submitted in one cassette. C. Received in fixative is one container labeled with the patient's name and designated GE junction biopsy. The specimen consists of one irregular fragment of light jones soft tissue that measures 0.3 cm. The specimen is totally submitted in one cassette. D. Received in fixative is one container labeled with the patient's name and designated Upper esophagus biopsy. The specimen consists of one irregular fragment of light jones soft tissue that measures 0.5 cm. The specimen is totally submitted in one cassette. Christian 12/27/2024 CPT:53175w5,81053v2
--- NOTE | 2024-12-27 08:53 | OP.EGD_ITS ---
Patient Name: Kaylee Charles Procedure Date: 12/27/2024 8:29 AM Date of : 1980 Age: 44 Procedure: Upper GI endoscopy Indications: Heartburn, Abdominal bloating Providers: Coretta King MD Medicines: Monitored Anesthesia Care Patient Profile: This is a 44 year old female. Complications: No immediate complications. Procedure: Pre-Anesthesia Assessment: - Prior to the procedure, a History and Physical was performed, and patient medications and allergies were reviewed. The patient's tolerance of previous anesthesia was also reviewed. The risks and benefits of the procedure and the sedation options and risks were discussed with the patient. All questions were answered, and informed consent was obtained. Prior Anticoagulants: The patient has taken no anticoagulant or antiplatelet agents. ASA Grade Assessment: Per anesthesia. After reviewing the risks and benefits, the patient was deemed in satisfactory condition to undergo the procedure. After obtaining informed consent, the endoscope was passed under direct vision. Throughout the procedure, the patient's blood pressure, pulse, and oxygen saturations were monitored continuously. The gastroscope was introduced through the mouth, and advanced to the second part of duodenum. The upper GI endoscopy was accomplished without difficulty. The patient tolerated the procedure well. Scope In: 8:37:42 AM Scope Out: 8:45:59 AM Total Procedure Duration Time 0 hours 8 minutes 17 seconds Findings: The Z-line was irregular and was found 37 cm from the incisors. Biopsies were taken with a cold forceps for histology. Diffuse moderate inflammation characterized by erythema was found in the gastric body and in the gastric antrum. Biopsies were taken with a cold forceps for histology. Biopsies were taken with a cold forceps for Helicobacter pylori cultures. Multiple 3 to 5 mm pedunculated and sessile polyps with no bleeding and no stigmata of recent bleeding were found in the gastric body. The polyp was removed with a hot snare. Resection and retrieval were complete. The cardia and gastric fundus were normal on retroflexion. White nummular lesions were noted in the upper third of the esophagus. Biopsies were taken with a cold forceps for histology. Impression: - Z-line irregular, 37 cm from the incisors. Biopsied. - Gastritis. Biopsied. - Multiple gastric polyps. Resected and retrieved. - White nummular lesions in esophageal mucosa. Biopsied. Recommendation: - Await pathology results. - Discharge patient to home. - Resume previous diet. - Continue present medications. - Await pathology results. Procedure Code(s): --- Professional --- 04380, Esophagogastroduodenoscopy, flexible, transoral; with removal of tumor(s), polyp(s), or other lesion(s) by snare technique 70328, 59, Esophagogastroduodenoscopy, flexible, transoral; with biopsy, single or multiple Diagnosis Code(s): --- Professional --- K22.89, Other specified disease of esophagus K31.7, Polyp of stomach and duodenum K29.70, Gastritis, unspecified, without bleeding R12, Heartburn R14.0, Abdominal distension (gaseous) CPT copyright 2021 [employer]. All rights reserved. 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 MD Coretta Daniel MD 12/27/2024 8:52:34 AM This report has been signed electronically. Number of Addenda: 0 Note Initiated On: 12/27/2024 8:29 AM
--- NOTE | 2024-12-27 08:53 | OP.CCLET_ITS ---
12/27/2024 Huang Jay MD [address] [place] [address] [place] [address] Re : Upper GI endoscopy procedure for Kaylee Charles Dear Dr. Jay This procedure was performed on Friday, December 27, 2024. My impressions and recommendations are as follows: Impressions : - Z-line irregular, 37 cm from the incisors. Biopsied. - Gastritis. Biopsied. - Multiple gastric polyps. Resected and retrieved. - White nummular lesions in esophageal mucosa. Biopsied. Recommendations : - Await pathology results. - Discharge patient to home. - Resume previous diet. - Continue present medications. - Await pathology results. My findings are described in the full procedure note, which is enclosed. If I can be of further assistance, please feel free to contact me at Doctor phone number(s): , Work: . Sincerely, MD Coretta Daniel MD 12/27/2024 8:52:34 AM This report has been signed electronically.
--- NOTE | 2024-12-27 08:59 | PCM.POST.ANE ---
Anesthesia: Postop Eval I Current Vital Signs Temperature: 97.2 F Pulse Rate: 71 Blood Pressure: 86/35 Respiratory Rate: 18 Pulse Ox: 95 Oxygen Delivery Method: Room Air Assessment Airway patent: Yes Spontaneous unlabored respirations: Yes Mental status: Asleep nausea: No Vomiting: No Anesthesia Complication: No Fluid Hydration Crystalloid volume administer (ml): 400 Total IV fluid infused: 400 Progress Note Anesthesia document: Postop Eval 1 completed: Yes
--- NOTE | 2024-12-27 13:43 | PCM.POSTANE2 ---
Anesthesia Postop Eval I Sum Postop Eval Completion status Anesthesia document: Postop Eval 1 completed: Yes Anesthesia Postop Eval I Summary Anesthesia Postop Eval I Summary: Anesthesia Postop Eval I: Assessment Summary Airway patent Yes 12/27/24 09:01 [email or web address] Spontaneous unlabored Yes 12/27/24 09:01 [email or web address] respirations Mental status Asleep 12/27/24 09:01 [email or web address] nausea No 12/27/24 09:01 [email or web address] Vomiting No 12/27/24 09:01 [email or web address] Anesthesia Postop Eval I: Fluid Summary Crystalloid volume administer 400 12/27/24 09:01 [email or web address] (ml) Colloids volume administered ( ml) Blood Product volume administered (ml) Total IV fluid infused 400 12/27/24 09:01 [email or web address] Anesthesia Postop Eval I: Summary Notes Anesthesia Complication No 12/27/24 09:01 [email or web address] Anesthesia Complication Comment: Post-operative progress note Anesthesia: Postop Eval II Evaluation Mental status: Awake and Calm Pain Level: 0 nausea: No Vomiting: No Complications Anesthesia Complication: No
== END 2024-12-27 09:57 | disposition home or self-care (01) ==
LOC: EN 07:27 → AC 07:29
PROVIDERS: PCP Internal Medicine; Referring Provider Internal Medicine; Visit Provider Surgery
PROC: 0DJ08ZZ Inspection of Upper Intestinal Tract, Via Natural or Artificial Opening Endoscopic (ICD-10-PCS; CPT 43235; principal; 2024-12-27 08:25)
DX: K31.7 Polyp of stomach and duodenum (principal); K21.9 Gastro-esophageal reflux disease without esophagitis; E78.00 Pure hypercholesterolemia, unspecified; I10 Essential (primary) hypertension; F17.210 Nicotine dependence, cigarettes, uncomplicated; Z79.899 Other long term (current) drug therapy; E03.9 Hypothyroidism, unspecified; Z79.890 Hormone replacement therapy; K29.50 Unspecified chronic gastritis without bleeding
CPT/HCPCS: 43251; 43239; 88305; 88342; J2405